=== PATIENT | male | born 1955 | race Hispanic/Latino ===

== ENCOUNTER 2021-09-09 16:46 | Inpatient (IN) | payer OTHER ==
--- OUTSIDE RECORDS SUMMARY | 2021-09-09 16:49 | XMS REPORT | Continuity of Care Document ---
:1955 Author Organization [facility] t Address [address] [place] [address] Care Team Providers Name Role Phone Timur SHEA, Wondiful A Primary Care Physician [phone] Neela Prajapati Attending Clinician Unavailable [id number] Attending Clinician Unavailable VAUGHN Attending Clinician Unavailable Moris GRAY Attending Clinician Unavailable ZECHARIAH Attending Clinician Unavailable Moris Hammond Attending Clinician MD ZECHARIAH R. Attending Clinician Unavailable Doctor Unassigned, Name Attending Clinician Unavailable Neela Prajapati Admitting Clinician Unavailable [id number] Admitting Clinician Unavailable ZECHARIAH Admitting Clinician Unavailable MD ZECHARIAH R. Admitting Clinician Unavailable Payers Payer Name Policy Type Policy Number Effective Date Expiration Date Rocío jo AET AET [id number] AETNA CHOICE POS II [id number] 2000 00:00:00 AET[employer] COMMERCIAL [id number] 2018 OUT OF NETWORK 00:00:00 Problems Condition Condition Condition Status Onset Resolution Last Treating Co mments Source Name Details Category Date Date Treatment Clinician Date Amputation Amputation Disease Active U T below knee below knee 9 He alth 00:00: 00 PAOD PAOD Disease Active [facility] (periphera (periphera 907 He alth l arterial l arterial 00:00: occlusive occlusive 00 disease) disease) PAD PAD Disease Active [place] (periphera (periphera 7-30 He alth l artery l artery 00:00: disease) disease) 00 S/P BKA S/P BKA Disease Active Univers (below (below 7-20 ity of knee knee 00:00: [place] amputation amputation 00 Me dical ), left ), left Branch Infection Infection Disease Active Uni vers 6-01 ity of 00:00: [place] 00 Medical Branch Other Other Disease Active Univers diseases diseases 2-09 ity of of nasal of nasal 00:00: [place] cavity and cavity and 00 Me dical sinuses sinuses Branch Mitral Mitral Disease Active Univers late late 2-09 ity of systolic systolic 00:00: [place] murmur murmur 00 Medical Branch Primary Primary Disease Active Univers hypertensi hypertensi 2-09 it y of on on 00:00: [place] 00 Medical Branch Occlusion Occlusion Disease Active Uni vers and and 2-09 ity of stenosis stenosis 00:00: [place] of carotid of carotid 00 Me dical artery artery Branch Hearing Hearing Disease Active Univers loss loss 2-09 ity of 00:00: [place] 00 Medical Branch Diabetic Diabetic Disease Active Unive rs peripheral peripheral 2-09 it y of neuropathy neuropathy 00:00: [place] 00 [place] Osteomyeli Osteomyeli Disease Active U nivers tis tis 2-01 ity of 00:00: [place] 00 Medical Branch Wound Wound Disease Active Overview: Univer s dehiscence dehiscence 2-01 Formattin ity of 00:00: g of this [place] 00 note Medical might be Branch different from the original. Added automatic ally from request for surgery [id number] S/P PICC S/P PICC Disease Active Unive rs central central 1-15 ity of line line 00:00: [place] placement placement 00 Medi megan Branch Osteomyeli Osteomyeli Disease Active Overview : Univers tis of tis of 1-11 Added ity of metatarsal metatarsal 00:00: automatic [place] 00 ally from Medical request Branch for surgery [id number] Left foot Left foot Disease Active Uni vers infection infection 1-11 ity of 00:00: [place] 00 Medical Branch Post-opera Post-opera Disease Active 2020-1 U nivers tive tive 2-19 ity of complicati complicati 00:[place] 00 Medical Branch S/P S/P Disease Active 2019-04 Univers ablation ablation 2-14 ity of of atrial of atrial 00:00: [place] fibrill[place] fibrillati 00 Me dical on on Branch Peripheral Peripheral Disease Active 2019-04 Overview : Univers vascular vascular 2-07 Formattin ity of disease, disease, 00:00: g of this [place] as unspecifie unspecifie 00 note Me dical d d might be Branch different from the original. Added automatic ally from request for surgery [id number] Ischemic Ischemic Disease Active 2019-04 Unive rs ulcer of ulcer of 0-30 ity of toe of toe of 00:00: [place] left foot left foot 00 [facility] Branch Ischemic Ischemic Disease Active 2019-04 Overview: Un adia ulcer of ulcer of 0-29 Added ity of toe of toe of 00:00: automatic [place] left foot left foot 00 ally from Barbara soto with with request Branch necrosis necrosis for of muscle of muscle surgery [id number] Toe Toe Disease Active 2019-04 Overview: Univer s osteomyeli osteomyeli 0-29 Added it y of tis, left tis, left 00:00: automatic [place] 00 ally from Medical request Branch for surgery [id number] Thrombus Thrombus Disease Active Unive rs 3-10 ity of 00:00: [place] 00 Medical Branch Status Status Disease Active Univers post left post left 3-09 ity of heart heart 00:00: [place] catheteriz catheteriz 00 Me dical ation ation Branch ([facility]) by ([facility]) by percutaneo percutaneo us us approach approach Acquired Acquired Disease Active 2018-04 Unive rs renal cyst renal cyst 1-12 it y of of right of right 00:00: [place] kidney kidney 00 Medical Branch Acquired Acquired Disease Active 2018-04 Unive rs renal cyst renal cyst 1-12 it y of of right of right 00:00: [place] kidney kidney 00 Medical Branch Renal Renal Disease Active 2018-04 Univers dysfunctio dysfunctio 0-31 it y of n n 00:00: [place] 00 Medical Branch Intestinal Intestinal Disease Active Overview : Univers metaplasia metaplasia 7-30 Formattin ity of of gastric of gastric 00:00: g of this [place] mucosa mucosa 00 note Medical might be Branch different from the original. Added automatic ally from request for surgery [id number] PAD PAD Disease Active 2017-04 Univers (periphera (periphera 0-30 it y of l artery l artery 00:00: [place] disease) disease) 00 Medica l Branch Proteinuri Proteinuri Disease Active U nivers a a 8-04 ity of 00:00: [place] 00 Medical Branch History of History of Disease Active Overview : Univers colon colon 5-03 Formattin ity of polyps polyps 00:00: g of this [place] 00 note Medical might be Branch different from the original. Added automatic ally from request for surgery [id number] Hepatomega Hepatomega Disease Active Overview : Univers ly ly 4-30 Formattin ity of 00:00: g of this [place] 00 note Medical might be Branch different from the original. Mild per US S/P CABG x S/P CABG x Disease Active U nivers 4 4 4-08 ity of 00:00: [place] 00 Medical Branch Anemia Anemia Disease Active Univers 4-03 ity of 00:00: [place] 00 Medical Branch Chest pain Chest pain Disease Active U nivers 3-04 ity of 00:00: [place] 00 Medical Branch Chronic Chronic Disease Active Univers diastolic diastolic 3-04 ity of congestive congestive 00:00[place] heart heart 00 Medical failure failure Branch PAF PAF Disease Active Univers (paroxysma (paroxysma 2-07 it y of l atrial l atrial 00:00: [place] fibrillati fibrillati 00 Me dical on) on) Branch TYLER TYLER Disease Active Univers (obstructi (obstructi 3-15 it y of ve sleep ve sleep 00:00: [place] apnea) apnea) 00 Medical Branch Coronary Coronary Disease Active 2014-04 Unive rs artery artery 2-08 ity of disease disease 00:00: [place] 00 Medical Branch 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 hyperlipid 2-08 it y of emia emia 00:00: [place] 00 Medical Branch Diabetes Diabetes Disease Active 2014-04 Unive rs mellitus mellitus 2-08 ity of 00:00: [place] 00 Medical Branch Dyspnea Dyspnea Disease Active 2014-04 Univers 2-08 ity of 00:00: [place] 00 Medical Branch 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 2-08 ity of artery artery 00:00: [place] disease disease 00 Medical Branch Obesity Obesity Disease Active 2014-04 Univers 05-22 ity of 00:00: [place] 00 [facility] Branch B12 B12 Disease Active Univers deficiency deficiency it y of [facility] Allergies, Adverse Reactions, Alerts Allergy Allergy Status Severity Reaction(s) Onset Inactive Treating Comm ents Source Name Type Date Date Clinician Freda Propensi Active [facility] ins ty to 12-19 Health adverse 00:00: reaction 00 s PENICILL DRUG Active Anaphylaxis 2014-04 Uni vers IN INGREDI 05-22 ity of 00:00: [place] 00 Medical Branch Penicill Propensi Active Anaphylaxis 2014-04 Patient Univers in ty to 05-22 reports ity of adverse 00:00: reaction [place] reaction 00 was bad. Medica l s Was given Branch Cefepime without adverse reaction Social History Social Habit Start Date Stop Date Quantity Comments Source Exposure to Not sure [facility] SARS-CoV-2 (event) [facility] History of tobacco Cigarette Smoker University of use [facility] Alcohol intake 2021-07-05 2021-07-05 0 /d University of 00:00:00 00:00:00 [facility] Tobacco Comment 2020-04-01 2020-04-01 quit 1996 Universit y of 00:00:00 00:00:00 [facility] Cigarettes smoked 2015-03-21 2015-03-21 Univers ity of current (pack per 00:00:00 00:00:00 ) - Reported Branch Cigarette 2015-03-21 2015-03-21 University of pack-years 00:00:00 00:00:00 [facility] Tobacco use and 2015-03-21 2015-03-21 Never used Universit y of exposure 00:00:00 00:00:00 [facility] [birth year] Universit y of 00:00:00 00:00:00 [facility] Smoking Status Start Date Stop Date Source Former smoker 2015-03-21 00:00:00 2015-03-21 00:00:00 Universi ty of [facility] Medications Ordered Filled Start Stop Current Ordering Indication Dosage Frequency Signature Comments Components Source Medication Medication Date Date Medication? Clinician (SIG) Name Name lisinopriL Yes 20mg Take 1 Unive rs (PRINIVIL) 1-18 tablet by ity of 20 mg 00:00: mouth [place] tablet 00 daily. Medical Please Branch note tablet dose change. spironolact Yes [id number] 12.5mg Take 0.5 Univers one 25 mg 1-04 tablets by ity of tablet 00:00: mouth [place] 00 daily. Medical Branch gabapentin 2020-04 Yes 300mg Take 300 Un adia 300 mg 1-08 mg by ity of capsule 13:35: mouth. [place] 36 Medical Branch rivaroxaban 2020-04 Yes 1 (one) Uni vers 20 mg 1-01 time each ity of tablet 00:00: day at the [place] 00 same time. Medical Branch clopidogrel Yes 1 (one) UT (Plavix) 75 9-07 time each Hea lth MG tablet 17:25: day at the 23 same time. rivaroxaban Yes 1 (one) [facility] (Xarelto) 907 time each Healt h 20 MG 17:25: day at the tablet 23 same time. clopidogrel Yes 1 (one) [place] (Plavix) 75 9-07 time each Hea lth MG tablet 17:25: day at the 23 same time. rivaroxaban Yes 1 (one) [facility] (Xarelto) 9-07 time each Healt h 20 MG 17:25: day at the tablet 23 same time. clopidogrel Yes 1 (one) [place] (Plavix) 75 9-07 time each Hea lth MG tablet 17:25: day at the 23 same time. rivaroxaban Yes 1 (one) [place] (Xarelto) 907 time each Healt h 20 MG 17:25: day at the tablet 23 same time. Insulin Yes [id number] Use as Univ ers [place], 7- directed ity of Disposable, 00:00: BId E11.65 [place] (PEN 00 Medical NEEDLE) 32 Branch gauge x 5/32" Ndle blood sugar Yes [id number] Use to Univers diagnostic - check ity of (ACCU-CHEK 00:00: blood [place] EL[place] PLUS 00 sugar 3X Medic al TEST STRP) daily. Branch strip DX:E11.42 lancets 33 Yes [id number] Use to U nivers gauge Misc 7-19 check ity of 00:00: blood [place] 00 sugar 3X Medical daily. Branch DX:E11.42 metoprolol Yes [id number] 50mg Take 1 Univers succinate 7-06 100 tablet by ity o f XL 50 mg 24 00:00: mouth 2 D[place] as hr tablet 00 (two) Medical times Branch daily. aspirin 81 0 Yes 81mg Take 1 Unive rs mg chewable 6-23 tablet by ity of tablet 00:00: mouth [place] 00 daily. Medical Branch aspirin Yes 1 (one) [facility] (ASPIRIN) 6-23 time each Healt h 81 MG 00:00: day at the chewable 00 same time. tablet aspirin 0 Yes 1 (one) UT (ASPIRIN) 6-23 time each Healt h 81 MG 00:00: day at the chewable 00 same time. tablet aspirin 0 Yes 1 (one) UT (ASPIRIN) 6-23 time each Healt h 81 MG 00:00: day at the chewable 00 same time. tablet mirtazapine Yes 15mg Take 1 Univ ers 15 mg 6-22 tablet by ity of tablet 00:00: mouth at [place] 00 bedtime. Medical Branch HYDROcodone Yes [id number] 1{tbl} Take 1 Un adia -acetaminop 6-22 tablet by ity of hen 10-325 00:00: mouth [place] mg tablet 00 every 6 Medical (six) Branch hours as needed for Pain (scale 4-6). Indication s: acute pain Insulin Yes [id number] INJECT 30 Univers Detemir 5-05 UNITS ity of (LEVEMIR 00:00: SUBCUTANEO [place] as FLEXTOUCH 00 USLY EVERY Medi megan U-100 MORNING Branch INSULN) 100 AND 15 unit/mL (3 UNITS mL) EVERY injection EVENING CLOPIDOGREL Yes Status post TAKE 1 Univers 75 mg 4-22 left heart TABLET BY ity of tablet 00:00: catheteriza MOUTH [place] as 00 tion (LHC) EVERY DAY Medi megan by Branch percutaneou s approach dulaglutide Yes Type 2 1.5mg inject 1.5 Univers (TRULICITY) 3-31 diabetes mg under ity of 1.5 mg/0.5 00:00: mellitus the skin [place] mL PnIj 00 with weekly. Medical peripheral Branch neuropathy metformin 0 Yes Type 2 1000mg Take 2 Un adia ER 500 mg 3-31 diabetes tablets by ity of 24 hr 00:00: mellitus mouth 2 [place] tablet 00 with (two) Medical peripheral times Branch neuropathy daily. dulaglutide Yes [id number] 1.5mg inject 1.5 Univers (TRULICITY) 3-31 mg under ity of 1.5 mg/0.5 00:00: the skin [place] as mL PnIj 00 weekly. Medical Branch metformin 2020-0 Yes [id number] 1000mg Take 2 Univers ER 500 mg 3-31 tablets by ity of 24 hr 00:00: mouth 2 [place] tablet 00 (two) Medical times Branch daily. atorvastati Yes 80mg Take 80 mg UT n (Lipitor) 3-15 by mouth Heal th 80 MG 00:00: every tablet 00 night. atorvastati Yes 80mg Take 80 mg UT n (Lipitor) 3-15 by mouth Heal th 80 MG 00:00: every tablet 00 night. atorvastati 2020-0 Yes 80mg Take 80 mg UT n (Lipitor) 3-15 by mouth Heal th 80 MG 00:00: every tablet 00 night. lisinopriL Yes 20mg Take 1 Unive rs (PRINIVIL) 2-23 tablet by ity of 20 mg 00:00: mouth [place] tablet 00 daily. Medical Please Branch note tablet dose change. pantoprazol 2020- No S/P PICC 40mg Take 1 Univers e 40 mg EC 05-23 central tablet by ity of tablet 00:00: 04:59 line mouth [place] 00 :00 placement daily for Medic al 180 days. Branch gabapentin 2020- No S/P PICC 300mg Take 1 Univers 300 mg 05-23 central capsule by ity of capsule 00:00: 04:59 line mouth [place] 00 :00 placement every Medical morning Branch and at 1200 (noon) for 180 days. acetaminoph 2021- No S/P PICC 650mg Take 2 Univers en 325 mg 05-22 central tablets by ity of tablet 00:00: 05:59 line mouth [place] 00 :00 placement every 6 Medical (six) Branch hours as needed for Pain (scale 1-3). furosemide No Chronic 40mg Take 1 U nivers 40 mg 05-22 heart tablet by ity of tablet 00:00: 04:59 failure mouth [place] 00 :00 with every Medical preserved morning Branch ejection and fraction evening for 180 days. Take one tablet by mouth in the morning and 1/2 (half) tablet by mouth in the evening. rivaroxaban 2020- No atrial 20mg Take 1 U nivers (XARELTO) 05-22 fibrillatio tablet by ity of 20 mg 00:00: 04:59 n mouth [place] tablet 00 :00 every Medical evening Branch for 180 days. Indication s: atrial fibrillati on gabapentin 2020- No S/P PICC 600mg Take 1 Univers 600 mg 05-22 central tablet by ity of tablet 00:00: 04:59 line mouth at [place] 00 :00 placement bedtime Medical for 180 Branch days. atorvastati 2019-04 Yes Essential 80mg Take 1 Univers n 80 mg 2-17 hypertensio tablet by ity of tablet 00:00: n mouth at [place] 00 bedtime. Medical Branch atorvastati 2019-04 Yes [id number] 80mg Take 1 Univers n 80 mg 2-17 tablet by ity of tablet 00:00: mouth at [place] 00 bedtime. Medical Branch magnesium 2019-04 Yes 400mg Take 400 Uni vers oxide 400 2-15 mg by ity of mg (241.3 00:00: mouth [place] mg 00 daily. Medical magnesium) Branch tablet magnesium 2019-04 Yes 400mg Take 400 Uni vers oxide 400 2-15 mg by ity of mg (241.3 00:00: mouth [place] mg 00 daily. Medical magnesium) Branch tablet metoprolol 2019-04 Yes Status post 50mg Take 1 Univers succinate 2-02 left heart tablet by ity of XL 50 mg 24 00:00: catheteriza mouth 2 [place] hr tablet 00 tion (LHC) (two) Med ical by times Branch percutaneou daily. s approach SPIRONOLACT 2019-04 Yes Essential TAKE 1/2 Univers ONE 25 mg 1-06 hypertensio TABLET BY ity of tablet 00:00: n MOUTH [place] 00 EVERY DAY Medical Branch Insulin 2020-0 Yes Type 2 Use as Univer s [place], 7-21 diabetes directed ity of Disposable, 00:00: mellitus BId E11.65 [place] (PEN 00 with Medical NEEDLE) 32 peripheral Bra nch gauge x neuropathy " Ndle ferrous 2019- Yes Anemia, 325mg Take 1 Univ ers sulfate 325 3-13 unspecified tablet by ity of mg (65 mg 00:00: type mouth 2 [place] iron) 00 (two) Medical tablet times Branch daily with meals. ferrous 2019- Yes [id number] 325mg Take 1 Un adia sulfate 325 3-13 tablet by ity of mg (65 mg 00:00: mouth 2 [place] iron) 00 (two) Medical tablet times Branch daily with meals. nitroglycer Yes .4mg Place 1 Uni vers in 0.4 mg 4-02 tablet ity of sublingual 00:00: under the [place] tablet 00 tongue Medical every 5 Branch (five) minutes as needed for Chest pain. nitroglycer Yes .4mg Place 1 Uni vers in 0.4 mg 4-02 tablet ity of sublingual 00:00: under the [place] tablet 00 tongue Medical every 5 Branch (five) minutes as needed for Chest pain. Immunizations Ordered Filled Immunization Date Status Comments [facility] e Immunization Name Name SARS-COV-2 COVID-19 2020-12-11 Completed Unive rsity of PFIZER VACCINE 00:00:00 [facility] SARS-COV-2 COVID-19 2020-06-05 Completed Unive rsity of PFIZER VACCINE 00:00:00 [facility] SARS-COV-2 COVID-19 2020-06-05 Completed Unive rsity of PFIZER VACCINE 00:00:00 [facility] SARS-COV-2 COVID-19 2020-05-09 Completed Unive rsity of PFIZER VACCINE 00:00:00 [facility] SARS-COV-2 COVID-19 2020-05-09 Completed Unive rsity of PFIZER VACCINE 00:00:00 [facility] SARS-COV-2 COVID-19 2020-05-08 Completed Unive rsity of PFIZER VACCINE 00:00:00 [facility] SARS-COV-2 COVID-19 2020-05-08 Completed Unive rsity of PFIZER VACCINE 00:00:00 [facility] TDAP 2019-11-22 Completed University of 00:00:00 [facility] Pneumococcal 2019-11-22 Completed University o f Polysaccharide, 00:00:00 [facility] ical PPSV23 (PNEUMOVAX) Branch TDAP 2019-11-22 Completed University of 00:00:00 [facility] Pneumococcal 2019-11-22 Completed University o f Polysaccharide, 00:00:00 [facility] ical PPSV23 (PNEUMOVAX) Branch Influenza Virus 2019-02-04 Completed Universit y of Vaccine Quad .5 mL 00:00:00 [facility] IM 6+ MO Branch Influenza Virus 2019-02-04 Completed Universit y of Vaccine Quad .5 mL 00:00:00 [facility] IM 6+ MO Branch Influenza Virus 2018-02-24 Completed Universit y of Vaccine [place] IM 3+ 00:00:00 [facility] Influenza Virus 2018-02-24 Completed Universit y of Vaccine Quad IM 3+ 00:00:00 [facility] TDAP 2017-02-27 Completed University of 00:00:00 [facility] TDAP 2017-02-27 Completed University of 00:00:00 [facility] Influenza Virus 2016-01-09 Completed Universit y of Vaccine 00:00:00 [facility] Influenza Virus 2016-01-09 Completed Universit y of Vaccine (3+ yrs) 00:00:00 [facility] Influenza Virus 2016-01-09 Completed Universit y of Vaccine 00:00:00 [facility] Influenza Virus 2016-01-09 Completed Universit y of Vaccine (3+ yrs) 00:00:00 [facility] Tetanus/Diptheria 2013-02-11 Completed Univers ity of 00:00:00 [facility] Tetanus/Diptheria 2013-02-11 Completed Univers ity of 00:00:00 [facility] Zoster(Zostavax)( 2012-10-01 Completed Unive rsity of ingles) 00:00:00 [facility] Pneumococcal 13 2012-10-01 Completed Universit y of Conjugate, PCV13 00:00:00 [facility] (Prevnar 13) [facility] Zoster(Zostavax)( 2012-10-01 Completed Unive rsity of ingles) 00:00:00 [facility] Pneumococcal 13 2012-10-01 Completed Universit y of Conjugate, PCV13 00:00:00 [place] Me dical (Prevnar 13) Branch Vital Signs Vital Name Observation Time Observation Value Comments Source Systolic blood 2021-08-20 16:40:00 144 mm[Hg] Univer sity of pressure [facility] Diastolic blood 2021-08-20 16:40:00 80 mm[Hg] Unive rsity of [facility] Heart rate 2021-08-20 16:33:00 65 /min [facility] Body temperature 2021-08-20 16:33:00 [facility].72 [facility] Body height 2021-08-20 16:33:00 170.2 cm [facility] Body weight 2021-08-20 16:33:00 94.031 kg [facility] BMI 2021-08-20 16:33:00 32.47 kg/m2 [facility] Oxygen saturation in 2021-08-20 16:33:00 100 /min [facility] Arterial blood by [facility] Pulse oximetry Branch Procedures Procedure Date / Time Performing Clinician Source Performed PHYSICIAN CORRESPONDENCE 2020-08-03 05:01:00 Doctor Unassigned, [facility] Medical Branch Plan of Care Planned Activity Planned Date Details Comments Source Future Scheduled 2029-11-21 DTaP,Tdap,and Td [facility] Test 00:00:00 Vaccines (3 - Td) Medical Br anch [code = DTaP,Tdap,and Td Vaccines (3 - Td)] Future Scheduled 2024-11-21 PNEUMOCOCCAL 0-64 [facility] Test 00:00:00 YEARS COMBINED SERIES Medica l Branch (3 of 3 - PPSV23) [code = PNEUMOCOCCAL 0-64 YEARS COMBINED SERIES (3 of 3 - PPSV23)] Future Scheduled 2021-05-21 [facility] (procedure) [code = Medical Branch [id number]] Future Scheduled 2021-05-19 Diabetic foot [facility] Test 00:00:00 examination Medical Branch (regime/therapy) [code = 332031748] Future Scheduled 2021-03-31 Depression screening Uni [facility] Test 00:00:00 (procedure) [code = Medical Branch [id number]] Future Scheduled 2020-12-13 INFLUENZA VACCINE [facility] Test 00:00:00 (Season Ended) [code = Medic al Branch INFLUENZA VACCINE (Season Ended)] Future Scheduled 2020-11-12 Hemoglobin A1c [facility] Test 00:00:00 measurement Medical Branch (procedure) [code = 45253947] Future Scheduled 2020-11-04 Screening for [facility] Test 00:00:00 malignant neoplasm of Medica l Branch colon (procedure) [code = 396199235] Future Scheduled 2020-11-04 Screening for [facility] Test 00:00:00 malignant neoplasm of Medica l Branch colon (procedure) [code = 958712879] Future Scheduled 2020-11-01 Cal[facility] 00:[facility]:00 lipoprotein Medical Branch cholesterol level (procedure) [code = 897809883] Future Scheduled 2020-11-01 Microalbumin [facility] Test 00:00:00 measurement, urine, Medical Branch quantitative (procedure) [code = 545362614] Future Scheduled 2020-08-31 Examination of retina Un [facility] Test 00:00:00 (procedure) [code = Medical Branch [id number]] Future Scheduled 2012-11-26 Z[facility] Test 00:00:00 Vaccine (SHINGRIX) (2 Medica l Branch of 3) [code = Zoster Recombinant Vaccine (SHINGRIX) (2 of 3)] Future Scheduled 2007 Screening for occult Uni [facility] Test 00:00:00 blood in feces Medical Bran h (procedure) [code = 211050422] Future Scheduled 2007 Stool DNA-based [facility] Test 00:00:00 colorectal cancer Medical Br anch screening (procedure) [code = 357780436048480] Future Scheduled 2007 Flexible fiberoptic Univ [facility] Test 00:00:00 sigmoidoscopy Medical Branch (procedure) [code = 36145777] Encounters Start End Encounter Admission Attending Care Care Encounter Source Date/Time Date/Time Type Type Clinicians Facility Department ID 2021-05-10 Outpatient 3 RUTHY Prajapati AML [id number] [facility] 12:22:33 Neela 0622 2021-05-10 Outpatient 3 [id number] [facility] REF [id number] [facility] 12:22:03 0621 2020-12-20 Outpatient VAUGHN [facility] [id number] [place] 02:58:24 [facility] 2021-09-03 2021-09-03 Outpatient R CHICHI, [facility] [id number] [facility] 11:30:00 11:30:00 JOHNNIE ity [facility] 2021-08-28 2021-08-28 Outpatient APPLE, [facility] [id number] 7[address] [place] 00:00:00 00:00:00 STEPHY [address] 2021-08-20 2021-08-20 Office VANGIE Gray [id number] [facility] 11:30:00 12:25:13 [facility] [id number] ity [facility] [id number] [facility] rocío [id number] [address] 2021-07-12 2021-07-13 Outpatient ZECHARIAH, [facility] [id number] 040 [place] 00:00:00 00:00:00 STEPHY [address] 2021-07-10 2021-07-10 Outpatient APPLE, [facility] [id number] 505 [place] 00:00:00 00:00:00 STEPHY [address] 2021-07-10 2021-07-10 Outpatient APPLE, [facility] [id number] 033 [place] 00:00:00 00:00:00 STEPHY [address] 2021-02-09 2021-02-09 Outpatient APPLE, [facility] [id number] 339 [place] 00:00:00 00:00:00 STEPHY [address] 2021-02-05 2021-02-05 Outpatient APPLE, [facility] [id number] 443 [place] 00:00:00 00:00:00 STEPHY [address] 2021-02-05 2021-02-05 Outpatient APPLE, [facility] [id number] 412 [place] 00:00:00 00:00:00 STEPHY [address] 2021-01-30 2021-01-30 Outpatient ZECHARIAH, [facility] [id number] 504 [place] 00:00:00 00:00:00 STEPHY [address] 2021-01-30 2021-01-30 Outpatient ZECHARIAH, [facility] [id number] 504 [place] 00:00:00 00:00:00 STEPHY [address] 2021-01-30 2021-01-30 Outpatient ZECHARIAH [facility] [id number] 505 [place] 00:00:00 00:00:00 STEPHY 015 [address] 2021-01-15 2021-01-15 Outpatient ZECHARIAH [facility] [id number] 767 [place] 00:00:00 00:00:00 STEPHY [address] 2021-01-09 2021-01-09 Outpatient ZECHARIAH [facility] [id number] 881 [place] 00:00:00 00:00:00 STEPHY [address] 2020-12-19 2020-12-19 Office VaughnTARYN [facility] [id number] 804 [place] 09:57:11 10:13:20 Visit Drake [facility] [id number] [place] 1 [id number] Results Test Description Test Time Test Comments Results Result Comments Source SARS-CoV-2 (COVID-19) RNA [Presence] in Respiratory sp ecimen by 2021-02-06 02:02:12 PERLA with probe detection Test Item Value Reference Range Interpretation Comme nts SARS-CoV-2 (COVID-19) RNA [Presence] in Respiratory Not detected No t-Detected specimen by PERLA with probe detection (test code = 04480-7) Whether patient is employed in a healthcare setting (test code = 82361-6) Whether the patient has symptoms related to condition of interest (test code = 60669-2) Patient was hospitalized because of this condition (test code = 07895-9) Whether the patient was admitted to intensive care unit (ICU) for condition of interest (test code = 85854-3) Whether patient resides in a congregate care setting (test code = 99104-4)
[2021-09-09 17:50] LABS: Hematocrit 25.3 % (39.6-49.0); Lymphocytes % 14.5 % (15.3-44.8); MPV 9.1 fL (7.6-11.3); RBC Red Blood Cell Count 2.75 M/uL (4.33-5.43)
[2021-09-09 18:09] LABS: Potassium 3.9 mmol/L (3.5-5.1); Troponin High Sensitivity 22.7 pg/mL (<58.9)
--- NOTE | 2021-09-09 18:50 | RAD REPORT ---
EXAM DESCRIPTION: RAD - Chest Single View - 09/09/2021 6:41 pm CLINICAL HISTORY: DYSPNEA Chest pain. COMPARISON: Chest Single View dated 01/03/2017; CHEST PA AND LAT 2 VIEW dated 06/15/2014 FINDINGS: Portable technique limits examination quality. The lungs are grossly clear. The heart is moderately enlarged with sternotomy wires present. No displ aced fractures.
--- NOTE | 2021-09-09 20:07 | EDPHYS ---
Physician Documentation [facility] Name: Sathya Douglass Age: 66 yrs Sex: Male : 1955 Arrival Date: 09/09/2021 Time: 16:50 Bed 8 Private MD: Gomez Lou C ED Physician Bal Masters HPI: 09/09 17:15 This 66 yrs old Male presents to ER via Wheelchair with complaints of cp Shortness Of Breath, General Weakness. 17:15 The patient has shortness of breath with light activity. Onset: The symptoms/episode cp began/occurred 6 day(s) ago. Duration: The symptoms are intermittent, with light activity. Associated signs and symptoms: Pertinent positives: chest pain, general weakness, Pertinent negatives: diaphoresis, dizziness, fever. Severity of symptoms: in the emergency department the symptoms are unchanged despite home interventions. Historical: - Allergies: 17:03 PENICILLINS; ld1 - PMHx: 17:03 Diabetes - NIDDM; High Cholesterol; Prostate; Hypertension; ld1 - Immunization history:: Adult Immunizations up to date, Client reports having NOT received the Covid vaccine. - Social history:: Smoking status: Patient denies any tobacco usage or history of. Patient/guardian denies using alcohol. ROS: 17:20 Constitutional: Negative for body aches, chills, fever, poor PO intake. cp 17:20 Eyes: Negative for injury, pain, redness, and discharge. cp 17:20 Cardiovascular: Positive for chest pain. cp 17:20 Neck: Negative for pain with movement, pain at rest, stiffness. cp 17:20 Respiratory: Positive for shortness of breath, on exertion. Negative for cough, wheezing. 17:20 Abdomen/GI: Negative for abdominal pain, vomiting, diarrhea, constipation. 17:20 Back: Negative for pain at rest, pain with movement. 17:20 : Negative for urinary symptoms. 17:20 Neuro: Positive for weakness, Negative for altered mental status, dizziness, headache, syncope. 17:20 All other systems are negative. Exam: 17:08 ECG was reviewed by the Attending Physician. cp 17:25 Constitutional: The patient appears in no acute distress, alert, awake, cp non-diaphoretic, non-toxic, well developed, well nourished. 17:25 Head/Face: Normocephalic, atraumatic. cp 17:25 Eyes: Periorbital structures: appear normal, Pupils: equal, round, and reactive to light and accomodation, Extraocular movements: intact throughout, Conjunctiva: normal, no exudate, no injection, Sclera: no appreciated abnormality, Lids and lashes: appear normal, bilaterally. 17:25 ENT: External ear(s): are unremarkable, Nose: is normal, Mouth: Lips: moist, Oral mucosa: pink and intact, moist, Posterior pharynx: Airway: no evidence of obstruction, patent. 17:25 Neck: ROM/movement: is normal, is supple, without pain, no range of motions limitations. 17:25 Chest/axilla: Inspection: normal, Palpation: is normal, no crepitus, no tenderness. 17:25 Cardiovascular: Rate: bradycardic, Rhythm: regular, Edema: is not appreciated, JVD: is not appreciated. 17:25 Respiratory: the patient does not display signs of respiratory distress, Respirations: normal, no use of accessory muscles, no retractions, labored breathing, is not present, Breath sounds: are clear throughout, no decreased breath sounds, no stridor, no wheezing. 17:25 Abdomen/GI: Inspection: abdomen appears normal, Palpation: abdomen is soft and non-tender, in all quadrants, Rectal exam: Stool: brown, guaiac negative. 17:25 Back: pain, is absent, ROM is normal. 17:25 Musculoskeletal/extremity: left lower extremity prosthesis. 17:25 Skin: cellulitis, is not appreciated, no rash present. 17:25 Neuro: Orientation: to person, place \\T\\ time. Mentation: is normal. Vital Signs: 17:00 BP 102 / 75; Pulse 70; Resp 17; Temp 98.1; Pulse Ox 97% on R/A; Weight 89.81 kg; Height ld1 5 ft. 7 in. (170.18 cm); Pain 6/10; 18:12 BP 136 / 55; Pulse 64; Resp 18 S; Pulse Ox 99% on R/A; jd3 19:01 BP 134 / 59; Pulse 54; Resp 20 S; Pulse Ox 95% on R/A; jd3 20:00 BP 136 / 66; Pulse 50; Resp 17; Pulse Ox 98% ; ld1 21:00 BP 131 / 53; Pulse 54; Resp 19; Pulse Ox 97% ; ld1 22:00 BP 111 / 61; Pulse 49; Resp 18; Pulse Ox 95% ; ld1 17:00 Body Mass Index 31.01 (89.81 kg, 170.18 cm) ld1 MDM: 17:01 Patient medically screened. cp 18:00 Differential diagnosis: CHF exacerbation, pneumonia, Pneumothorax pulmonary edema, cp Pulmonary Embolism Unstable Angina. 19:30 Data reviewed: vital signs, lab test result(s), EKG, radiologic studies, plain films. cp 19:30 Test interpretation: by ED physician or midlevel provider: ECG, plain radiologic cp studies. 20:00 Counseling: I had a detailed discussion with the patient and/or guardian regarding: the cp historical points, exam findings, and any diagnostic results supporting the discharge/admit diagnosis, lab results, radiology results, the need for further work-up and treatment in the hospital. 20:00 Physician consultation: A Carmine SHEA was called at 20:00, was contacted at 20:00, regarding admission, to the telemetry unit. patient's condition. 09/09 17:13 Order name: Basic Metabolic Panel; Complete Time: 19:23 [facility] 09/09 19:23 Interpretation: Normal except: GLUC 215; BUN 33; CRE 1.62; GFR 47. 09/09 17:13 Order name: CBC with Diff; Complete Time: 19:23 [facility] 09/09 19:23 Interpretation: Normal except: RBC 2.75; HGB 8.3; HCT 25.3; MARIAN% 78.3; LYM% 14.5; BASO% cp 1.4. 09/09 17:13 Order name: NT PRO-BNP; Complete Time: 19:23 [facility] 09/09 19:24 Interpretation: Abnormal: NT PRO-BNP 4687. 09/09 17:13 Order name: Troponin HS; Complete Time: 19:23 [facility] 09/09 19:25 Interpretation: Troponin HS 22.7; Reviewed. 09/09 20:22 Order name: Ferritin [facility] 09/09 20:22 Order name: Folic Acid, RBC [facility] 09/09 20:22 Order name: Iron [facility] 09/09 20:22 Order name: Transferrin Sat/Iron Binding [facility] 09/09 20:22 Order name: Vitamin B12 Level [facility] 09/09 20:22 Order name: Basic Metabolic Panel [facility] 09/09 20:22 Order name: Basic Metabolic Panel [facility] 09/09 20:22 Order name: CBC with Automated Diff [facility] 09/09 20:22 Order name: CBC with Automated Diff [facility] 09/09 21:03 Order name: COVID-19 SARS RT PCR (Document "Date of Onset" if Symptomatic) vc1 09/09 17:13 Order name: XRAY Chest (1 view); Complete Time: 19:23 [facility] 09/09 17:13 Order name: EKG; Complete Time: 17:14 [facility] 09/09 17:13 Order name: Cardiac monitoring; Complete Time: 17:28 [facility] 09/09 17:13 Order name: EKG - Nurse/Tech; Complete Time: 17:28 09/09 17:13 Order name: IV Saline Lock; Complete Time: 18:20 [facility] 09/09 17:13 Order name: Labs collected and sent; Complete Time: 17:44 [facility] 09/09 20:22 Order name: EKG Electrocardiogram [facility] 09/09 20:22 Order name: EKG Electrocardiogram [facility] 09/09 20:22 Order name: EKG Electrocardiogram [facility] 09/09 20:22 Order name: EKG Electrocardiogram [facility] 09/09 20:22 Order name: EKG Electrocardiogram [facility] 09/09 21:10 Order name: Troponin High Sensitivity [facility] 09/09 21:10 Order name: Troponin High Sensitivity [facility] 09/09 21:10 Order name: Troponin High Sensitivity [facility] 09/09 21:10 Order name: Troponin High Sensitivity [facility] 09/09 17:13 Order name: O2 Per Protocol; Complete Time: 17:28 [facility] 09/09 17:13 Order name: O2 Sat Monitoring; Complete Time: 17:28 EC:08 Rate is 59 beats/min. Rhythm is irregular. QRS interval is normal. QT interval is cp normal. T waves are Inverted in lead aVL. Interpreted by me. Reviewed by me. Administered Medications: 20:48 Drug: Lasix (furosemide) 20 mg Route: IVP; Site: left antecubital; vc1 Disposition Summary: 09/09/21 20:06 Hospitalization Ordered Hospitalization Status: Inpatient Admission cp Provider: Gomez Lou cp Location: Telemetry/[facility] (Inpatient) cp Condition: Stable cp Problem: new cp Symptoms: have improved cp Bed/Room Type: Standard cp Room Assignment: 232(09/09/21 22:34) cg Diagnosis - Angina pectoris, unspecified cp - Anemia in other chronic diseases classified elsewhere cp Forms: - Medication Reconciliation Form cp - SBAR form cp Addendum: 09/22/2021 07:08 Co-signature as Attending Physician, Bal Masters MD I agree with the assessment and k dr plan of care. Signatures: Dispatcher [employer] EDNH Bal Masters MD MD [facility] Zuhair Snyder PA PA cp Kylie Douglass, RN RN cg Edyta Brar RN RN jl7 Urvashi Carvajal RN RN ld1 Janna Meza RN RN vc1 Corrections: (The following items were deleted from the chart) 09/09 20:07 20:06 Iron deficiency anemia, unspecified cp cp 22:34 20:06 cp cg
--- NOTE | 2021-09-09 20:07 | ER ---
Nurse's Notes [facility] Name: Sathya Douglass Age: 66 yrs Sex: Male : 1955 Arrival Date: 09/09/2021 Time: 16:50 Bed 8 Private MD: Gomez Lou C Diagnosis: Angina pectoris, unspecified;Anemia in other chronic diseases classified elsewhere Presentation: 09/09 17:00 Chief complaint: Patient states: SOB and upper back pain since Friday. Gets "winded" ld1 when walking 3 steps. Coronavirus screen: At this time, the client does not indicate any symptoms associated with coronavirus-19. Ebola Screen: No symptoms or risks identified at this time. Initial Sepsis Screen: Does the patient meet any 2 criteria? No. Patient's initial sepsis screen is negative. Does the patient have a suspected source of infection? No. Patient's initial sepsis screen is negative. Risk Assessment: Do you want to hurt yourself or someone else? Patient reports no desire to harm self or others. Onset of symptoms was September 09, 2021. 17:00 Method Of Arrival: Wheelchair ld1 17:00 Acuity: FRANCIS 3 ld1 Triage Assessment: 17:03 General: Appears in no apparent distress. comfortable, Behavior is calm, cooperative, ld1 appropriate for age. Pain: Complains of pain in back Pain does not radiate. EENT: No signs and/or symptoms were reported regarding the EENT system. Neuro: Level of Consciousness is awake, alert, obeys commands, Oriented to person, place, time, situation. Cardiovascular: Capillary refill < 3 seconds Patient's skin is warm and dry. Respiratory: Airway is patent Respiratory effort is even, unlabored. Respiratory: Onset: The symptoms/episode began/occurred suddenly, the patient has mild shortness of breath. GI: Abdomen is flat, non-distended. 17:03 Respiratory: Onset: The symptoms/episode began/occurred gradually, the patient has mild jd3 shortness of breath. Historical: - Allergies: 17:03 PENICILLINS; ld1 - PMHx: 17:03 Diabetes - NIDDM; High Cholesterol; Prostate; Hypertension; ld1 - Immunization history:: Adult Immunizations up to date, Client reports having NOT received the Covid vaccine. - Social history:: Smoking status: Patient denies any tobacco usage or history of. Patient/guardian denies using alcohol. Screenin:03 Abuse screen: Denies threats or abuse. Nutritional screening: No deficits noted. jd3 Tuberculosis screening: No symptoms or risk factors identified. Fall Risk Ambulatory Aid- None/Bed Rest/Nurse Assist (0 pts). Gait- Normal/Bed Rest/Wheelchair (0 pts) Mental Status- Oriented to own ability (0 pts). Total Amaral Fall Scale indicates No Risk (0-24 pts). Assessment: 17:00 General: Appears in no apparent distress. comfortable, Behavior is calm, cooperative, jd3 appropriate for age. Pain: Complains of pain in mid back area Quality of pain is described as aching. Neuro: Reynolds Agitation-Sedation Scale (RASS): 0 - Alert and Calm Level of Consciousness is awake, alert, obeys commands, Oriented to person, place, time, situation. Cardiovascular: Heart tones present Capillary refill < 3 seconds Patient's skin is warm and dry. Rhythm is sinus bradycardia. Respiratory: Reports shortness of breath on exertion Airway is patent Respiratory effort is even, unlabored, Respiratory pattern is regular, symmetrical, Breath sounds are clear bilaterally. Denies cough. GI: No signs and/or symptoms were reported involving the gastrointestinal system. : No signs and/or symptoms were reported regarding the genitourinary system. EENT: No signs and/or symptoms were reported regarding the EENT system. Derm: Skin is intact, Skin is dry, Skin is normal, Skin temperature is warm. Musculoskeletal: Circulation, motion, and sensation intact. Range of motion: intact in all extremities. 18:12 Reassessment: Patient appears in no apparent distress at this time. No changes from jd3 previously documented assessment. Patient and/or family updated on plan of care and expected duration. Pain level reassessed. Patient is alert, oriented x 3, equal unlabored respirations, skin warm/dry/pink. 19:01 Reassessment: Patient appears in no apparent distress at this time. Patient and/or jd3 family updated on plan of care and expected duration. Pain level reassessed. Patient is alert, oriented x 3, equal unlabored respirations, skin warm/dry/pink. 20:00 Reassessment: Patient and/or family updated on plan of care and expected duration. Pain ld1 level reassessed. Patient is alert, oriented x 3, equal unlabored respirations, skin warm/dry/pink. 21:00 Reassessment: Patient and/or family updated on plan of care and expected duration. Pain ld1 level reassessed. Patient is alert, oriented x 3, equal unlabored respirations, skin warm/dry/pink. 22:00 Reassessment: Patient and/or family updated on plan of care and expected duration. Pain ld1 level reassessed. Patient is alert, oriented x 3, equal unlabored respirations, skin warm/dry/pink. Vital Signs: 17:00 BP 102 / 75; Pulse 70; Resp 17; Temp 98.1; Pulse Ox 97% on R/A; Weight 89.81 kg; Height ld1 5 ft. 7 in. (170.18 cm); Pain 6/10; 18:12 BP 136 / 55; Pulse 64; Resp 18 S; Pulse Ox 99% on R/A; jd3 19:01 BP 134 / 59; Pulse 54; Resp 20 S; Pulse Ox 95% on R/A; jd3 20:00 BP 136 / 66; Pulse 50; Resp 17; Pulse Ox 98% ; ld1 21:00 BP 131 / 53; Pulse 54; Resp 19; Pulse Ox 97% ; ld1 22:00 BP 111 / 61; Pulse 49; Resp 18; Pulse Ox 95% ; ld1 17:00 Body Mass Index 31.01 (89.81 kg, 170.18 cm) ld1 ED Course: 16:50 Patient arrived in ED. am2 16:50 Gomez Lou MD is Private Physician. am2 16:53 Giacomo uLi RN is Primary Nurse. jd3 16:53 Zuhair Snyder PA is PHCP. cp 16:53 Bal Masters MD is Attending Physician. cp 17:03 Triage completed. ld1 17:03 Arm band placed on right wrist. ld1 17:05 Patient has correct armband on for positive identification. Bed in low position. Call jd3 light in reach. Side rails up X 1. Adult w/ patient. Client placed on continuous cardiac and pulse oximetry monitoring. NIBP monitoring applied. bus monitor on. Pulse ox on. NIBP on. 17:11 EKG done, by ED staff, reviewed by Zuhair LUIS. jl7 17:44 Missed attempt(s): 22 gauge in right forearm. Bleeding controlled, band aid applied, jd3 catheter tip intact. Missed attempt(s): 20 gauge in right antecubital area. Bleeding controlled, band aid applied, catheter tip intact. 17:44 Initial lab(s) drawn, by me, sent to lab. jd3 18:08 Missed attempt(s): 22 gauge in left antecubital area. Bleeding controlled, band aid jl7 applied, catheter tip intact. 18:42 XRAY Chest (1 view) In Process Unspecified. EDMS 19:21 Primary Nurse role handed off by Giacomo Lui RN eb 20:06 Gomez Lou MD is Hospitalizing Provider. cp 20:18 Tanna Lagos, TERRIE is Primary Nurse. lg3 21:10 COVID-19 SARS RT PCR (Document "Date of Onset" if Symptomatic) Sent. vc1 23:26 No provider procedures requiring assistance completed. Patient admitted, IV remains in bb place. Administered Medications: 20:48 Drug: Lasix (furosemide) 20 mg Route: IVP; Site: left antecubital; vc1 Medication: 17:03 VIS not applicable for this client. jd3 Outcome: 20:06 Decision to Hospitalize by Provider. cp 23:26 Admitted to Tele accompanied by tech, room 232, with chart, Report called to Chioma FALCON bb 23:26 Condition: stable 23:26 Instructed on 23:51 Patient left the ED. lp1 Signatures: Dispatcher [employer] EDMS Lili Fernandes RN RN bb Oxana Moya RN RN lp1 Zuhair Snyder PA PA cp Edyta Brar RN RN jl7 Blanka Mancia amGiacomo De La Fuente, RN RN jAminah Caballero Lacie, RN RN lg3 Urvashi Carvajal RN RN ld1 Janna Meza RN RN vc1
[2021-09-09] MEDS ORDERED: ONDANSETRON 4 MG/2 ML VIAL IV PRN (20:15)
[2021-09-09] MEDS ORDERED: FUROSEMIDE 20 MG/ 2ML VIAL ONE (20:30)
[2021-09-09 23:55] VITALS: BMI 31.0
[2021-09-10 06:16] LABS: Absolute Lymphocytes (CBC) 1.1 K/uL (0.7-4.9); MPV 8.6 fL (7.6-11.3); RBC Red Blood Cell Count 2.43 M/uL (4.33-5.43)
[2021-09-10 06:54] LABS: Ferritin 179.2 ng/mL (26-388); Potassium 3.8 mmol/L (3.5-5.1)
[2021-09-10] MEDS ORDERED: ASPIRIN EC 81 MG TAB PO SCH (09:00)
[2021-09-10] MEDS ORDERED: GLUCAGON 1 MG/VIAL IM PRN (09:54)
[2021-09-10] MEDS ORDERED: D10W 250 ML BAG IV PRN (10:24)
[2021-09-10] MEDS ORDERED: PANTOPRAZOLE 40MG TABLET PO ONE (11:00)
[2021-09-10] MEDS: INSULIN -REGULAR HUMAN 50 UNIT/0.5 ML ML SQ SCH ×3 (11:30→20:41)
--- NOTE | 2021-09-10 11:32 | HP ---
JILLIAN/DWAYNE Voice ID: [id number] MTDD
[2021-09-10] MEDS ORDERED: NA CHLORIDE 0.9% 250 ML ONE ×2 (14:57→19:49)
--- NOTE | 2021-09-10 19:53 | CON ---
Date of Consultation: 09/10/2021 Reason For Consultation: Chest pain and shortness of breath. History Of Present Illness: 66-year-old male with history of coronary artery disease, status post re cent stent placement support, claimed that he felt better for some time and then started h aving chest pain again along with shortness of breath on minimal exertion. Generally, he feels very weak. Has no nausea, vomiting, or diaphoresis. Past Medical History: Coronary artery disease, diabetes, dyslipidemia, hypertension, large prostate. Medications: Refer to reconciliation sheet for detailed list. Allergies: PENICILLIN. Family History: No premature coronary artery disease or cancer. Social History: Does not smoke or drink. Does not use any drugs. Review of Systems: All systems reviewed, were negative except mentioned in HPI. Physical Examination: Vital Signs: Reviewed. Head and Neck: Pupils are equal, reactive to light. Intact eye movements. No cervical lymphadenopa thy. Neck: Supple. Thyroid is not enlarged. Lungs: Faint crackles on bases. No accessory muscle use or muscle retraction. Heart: Irregularly irregular with aortic systolic ejection murmur. Abdomen: Soft, nontender. Bowel sounds positive. No organomegaly. No masses or hernia. No rigidi ty or rebound. Extremities: No clubbing, cyanosis. Intact pulses. Skin: No rashes. Neurologic: Alert, awake, oriented x3. No acute focal deficits appreciated. Investigations: BUN 37, creatinine 1.57, and his troponin I is negative. Hemoglobin 7.5. EKG witho ut acute specific abnormalities. Assessment And Recommendation: Chest pain. Known history of coronary artery disease. Has aortic sy stolic ejection murmur on exam. Recommend to obtain echocardiogram and to evaluate aortic valve and also a nuclear stress test. Discussed with the patient, he wants to do the above recommended follow up with his primary vascular specialists and as such I will sign off on the case and thank you for allowing sommer narvaez to be a part of your patient's care. /DWAYNE Voice ID: [id number] Report ID: [id number]
[2021-09-10] MEDS: GABAPENTIN 300 MG CAP PO SCH (20:43)
[2021-09-10] MEDS ORDERED: ATORVASTATIN 40 MG TAB PO SCH (21:00)
[2021-09-11 01:16] LABS: Hematocrit 31.6 % (39.6-49.0)
[2021-09-11] MEDS: INSULIN -REGULAR HUMAN 50 UNIT/0.5 ML ML SQ SCH (07:30)
[2021-09-11] MEDS ORDERED: PANTOPRAZOLE 40MG TABLET PO SCH (07:30)
[2021-09-11 08:06] VITALS: BP 155/68; TEMP 97.3
[2021-09-11] MEDS: GABAPENTIN 300 MG CAP PO SCH (08:11)
[2021-09-11 11:07] VITALS: O2SAT 98
--- NOTE | 2021-09-11 12:21 | EKG ---
Test Date: 2021-09-09 Test Time: 17:02:21 Brassiere Cup Mold Cutter: [place]ORD MEASUREMENT RESULTS: Intervals: Rate: 59 NM: QRSD: 84 QT: 446 QTc: 441 [place]: P: NM: QRS: 48 T: 249 INTERPRETIVE STATEMENTS: Atrial flutter with variable AV block ST & T wave abnormality, consider anterior ischemia Abnormal ECG Compared to ECG 01/06/2017 16:55:32 Possible ischemia now present Sinus rhythm no longer present ST (T wave) deviation still present Electronically Signed On 09-11-21 12:16:58 CDT by Abdon Arciniega
--- NOTE | 2021-09-11 12:42 | HP ---
Date of Admission: 09/10/2021 Chief Complaint: Feeling weak and tired, chest pain, and shortness of breath. History Of Present Illness: This is a 66-year-old very pleasant male patient, who has multiple comorbidities, came into our emergency room with 3-4 days history of feeling very weak, tired with any activity. For example, taking 3-4 steps after that he would have some shortness of breath and chest pain. He describes his chest pain as pressure type of feeling associated with some back pain. All the symptoms get relieved with rest and when he does try to walk again next time, he would have same complaints. No blood in stool. No change in bowel habits. No nausea, vomiting. No abdominal pain. No acid reflux. No trouble swallowing. He came into emergency room yesterday evening with these complaints. After he was evaluated, he was admitted to the hospital. This morning when I saw him, his brother and were present at bedside. Allergies: TO PENICILLIN. Medications: Metoprolol succinate 50 mg p.o. daily; atorvastatin 40 mg daily at bedtime; clopidogrel 75 mg p.o. daily; Xarelto 20 mg p.o. daily with evening meal; Trulicity 3 mg per 0.5 mL, the patient injects 0.5 mL subcutaneous injection 1 week; ferrous sulfate 325 mg 2 times a day; Levemir insulin 30 units in the morning and 15 units at bedtime; lisinopril 20 mg daily; metformin 500 mg takes 2 tablets 2 times a day; mirtazapine 15 mg p.o. daily at bedtime; pantoprazole 40 mg daily 30 minutes before breakfast. Review of Systems: Constitutional: As mentioned above. Cardiovascular: As mentioned above. Respiratory: As mentioned above. Neurology: The patient has chronic problem with tingling, numbness of the right foot. All other systems reviewed and negative. Past Medical History: Significant for history of TIA in May 2020, peripheral neuropathy due to diabetes, diabetic retinopathy, type 2 diabetes mellitus, hypertension, hyperlipidemia, coronary artery disease, history of myocardial infarction in 1995, atrial fibrillation, carotid artery stenosis, chronic anemia and his baseline hemoglobin is anywhere between 10.8 to 11.4. Last hemoglobin on August 01, 2021 was 10.8. Past medical history also significant for thrombocytopenia. Past Surgical History: Coronary artery stent placement in April 2021 and July 13, 2021. Coronary artery bypass surgery in 2004, ablation for atrial fibrillation in May 2020, carotid artery stent in 2004, left leg angioplasty and stent in the past, and the patient had left leg below-knee amputation September 2020 and right knee surgery in the past. Family History: Father , had diabetes and kidney disease. Mother , had diabetes, heart disease, and stroke. Brother is alive and well. Sister has diabetes. Social History: Prior history of smoking, not at present time. Use of alcohol negative. Immunization History: The patient had his COVID-19 vaccine; first dose May 09, 2020, second dose June 05, 2020, third dose December 11, 2020. Physical Examination: Vital Signs: Height 5 feet 7 inches, weight 198 pounds. Temperature 97.1, pulse 51, respiratory rate 16, blood pressure 123/67, oxygen saturation 98%. General: Awake, alert, oriented, not in distress. HEENT: Head atraumatic, normocephalic. Conjunctivae nonerythematous. Sclerae white. Mouth, no thrush or edema noted. Ears/Nose, no mass, lesion, discharge noted. Neck: Supple. No JVD, lymph nodes, bruit, thyromegaly noted. Lungs: Bilateral good equal air entry. Clear to auscultation. No rhonchi. No rales. Heart: The patient's rhythm is irregularly irregular. No murmur. No gallop. Abdomen: Soft, bowel sounds normal. No guarding, rigidity, tenderness, mass, hepatosplenomegaly, distention, or bruit noted. Extremities: Significant for left below-knee amputation and no evidence of any open wound or any area of any infection. Well-healed stump. Skin: No rash, ulcer, cellulitis. Lymphatics: No lymph node enlargement in neck, supraclavicular, infraclavicular region. Neuro: No focal neurological deficit. Chest: Unremarkable. External Genitalia: Deferred. Rectal: Deferred. Laboratory Data: Yesterday; white count was 6.7, hemoglobin 8.3, platelets 192. This morning; white count 6.8, hemoglobin 7.5, platelets 186. Yesterday; sodium 138, potassium 3.9, chloride 105, bicarb 24, BUN 33, creatinine 1.62, glucose 215. Troponin 22.7. ProBNP 4687. Second troponin 23.3, third troponin 20.8. This morning; sodium 139, potassium 3.8, chloride 109, bicarb 24, BUN 37, creatinine 1.56, glucose 122, vitamin B12 282, ferritin 179. Serum iron 35, TIBC 211. Folic acid level pending. Chest x-ray shows cardiomegaly, otherwise no acute changes. Impression: 1. Acute blood loss anemia. 2. Coronary artery disease. 3. Chronic atrial fibrillation. 4. Volume depletion. 5. Chronic anticoagulation therapy. 6. Type 2 diabetes mellitus with diabetic retinopathy. 7. Type 2 diabetes mellitus with diabetic neuropathy. 8. Hypertension. 9. Hyperlipidemia. 10. Carotid artery stenosis. 11. Peripheral vascular disease. Plan: We will go ahead and admit the patient to hospital for further evaluation and management of this problem. The patient is appropriate for inpatient and is expected to spend 2 midnights in hospital. The patient's stool guaiac was negative, done in the emergency room yesterday. At this point, I am definitely concerned about acute blood loss anemia as his hemoglobin was 10.8 just about 5 weeks ago and it is much lower now with this hospital admission as we have noted. He does not have any obvious signs, symptoms of any GI blood loss, but that is definitely over concern. His creatinine on outpatient basis was around 1.1 to 1.2 range and BUN and creatinine slightly have gone up. There is a good possibility that we might be dealing with upper GI bleeding. We do not have any armored truck driver available for any consultation and the patient sees Dr. Ghosh on an outpatient basis and I have encouraged him that he should follow up with him within next couple of weeks or so for further evaluation and management of this anemia problem as he will need to have an EGD as well as colonoscopy done and if that does not explain, then he may need to have a capsule endoscopy done for complete workup looking for any underlying cause of blood loss. I have also encouraged him to follow up with his shank carrier, Dr. Brown and I will try to reach out to him to communicate with him regarding the patient's current hospital presentation and we will discuss details with him at that time. We will not give any anti-platelet therapy or any anticoagulant medication at this time. I have ordered 2 units of packed red cell blood transfusion to be given and we will follow up on post transfusion hemoglobin and continue high-dose statin therapy and proton pump inhibitor per order. Continue gabapentin for diabetic neuropathy and diabetes will be managed with sliding scale insulin. The patient remains on telemetry and he has atrial fibrillation. His heart rate has dropped down into 40 to 50 range and he takes metoprolol 50 mg daily at home. I will hold on to it and I will consider to restart it and if necessary may be at a lower dose at appropriate time. Other home medications will be restarted at appropriate time. Details and plan of treatment were discussed with the patient in presence of his brother and the patient's . I will see him tomorrow for followup. This patient may benefit from Watchman procedure and obviously the final decisions will be made by his shank carrier. I have ordered stool guaiac to be done on a daily basis. JILLIAN/DWAYNE Voice ID: [id number] MTDD
--- NOTE | 2021-09-11 13:22 | PN ---
Date of Progress Note: 09/11/2021 The patient had been admitted by 09/09/2021. He was seen by Dr. Ge on 09/10/2021. The patient is not having anymore chest pain. He had came in with anemia, angina, shortness of breat h, and weakness. He has had 2 units of blood transfusion. He is asymptomatic right now. He has a c reatinine of 1.56. He has chronic atrial fibrillation, rate of 50, which is chronic. He takes Xarel to for that. He takes Effient with history of coronary artery disease, status post CABG in the past. He also has diabetes, hypertension, and dyslipidemia that are fairly well controlled. His last ech ocardiogram in 2017 showed [id number] decrease in ejection fraction of 35% to 49%. I agree wit h his present regimen. He has already had a negative GI workup. No further cardiac workup at this p oint. He will follow up with Dr. Brown in the next couple of weeks. He can go home as far as I am co ncerned. Case was discussed with Dr. Lou. KRYS/DWAYNE Voice ID: [id number] Report ID: [id number]
--- NOTE | 2021-10-09 10:02 | DS ---
Date of Discharge: 09/11/2021 Disposition: Discharged to go home. Physical Examination: HEENT: Unremarkable. Lungs: Clear to auscultation. Heart: Sounds . No guarding, rigidity, tenderness, distention. Extremities: No leg edema. Discharge Medications And Instructions: Continue all prior home medication except following changes. 1.Stop prasugrel. 2.Stop Xarelto. 3.Lower metoprolol succinate dose and take 50 mg. The patient to take half a tablet by mouth daily. 4.Start aspirin 81 mg, take 1 tablet by mouth daily with food. 5.Follow up with Dr. Brown, heeler as soon as possible this week. Dr. Brown's office will conta ct you with appointment as I have discussed details with him yesterday. 6.Follow up at my office next week on Friday, which is 09/17/2021. Call office for appointment. 7.Follow up with Dr. Ghosh in 2 weeks. Laboratory Data: On 09/09/2021; white count 6.7, hemoglobin 8.3, platelets 192. On 09/10/2021, hemo globin was 7.5. After blood transfusion, his last hemoglobin came up to 10.6. Chemistry; his initia l sodium 138, potassium 3.9, chloride 105, bicarb 24, BUN 33, creatinine 1.62, glucose 215. Troponin was 22.7 on the first set, 23.3 for the second set, and 20.8 for the third set. Vitamin B12 level 2 82, folic acid level 871. Ferritin was 179. Serum iron was 35. TIBC was 211. Hospital Course: This is a 66-year-old pleasant male patient, who was admitted to the hospital with chief complaints of feeling weak, tired, chest pain and shortness of breath. Please see dictated H a nd P for more information. After the patient was evaluated in the ER, he was admitted to the [facility] with this acute blood loss anemia problem. The patient received blood transfusion. He does see ca rdiologist, Dr. Brown on regular basis and I did communicate with Dr. Brown regarding this hospital adm ission with acute blood loss anemia and he recommended for the patient to stop his anti-platelet ther apy which is prasugrel and anticoagulant therapy which is Xarelto. The patient will need GI workup a s well as cardiac workup, so he was made aware about my discussion with his heeler that he will need to follow up with his heeler as soon as possible per recommendation and also follow up wi th his meter tester polyphase. After blood transfusion, the patient was discharged to go home in stable condition with above-mentioned medications and instructions. Final Diagnoses: 1.Acute blood loss anemia. 2.Coronary artery disease. 3.Chronic atrial fibrillation. 4.Volume depletion. 5.Chronic anticoagulation therapy. 6.Type 2 diabetes mellitus with neuropathy. 7.Type 2 diabetes mellitus with retinopathy. 8.Hypertension. 9.Hyperlipidemia. 10.Carotid artery stenosis. 11.Peripheral vascular disease. JILLIAN/MODL Voice ID: [id number] Report ID: [id number]
== END 2021-09-11 09:15 | disposition home or self-care (01) | DRG 812 ==
LOC: ER 16:46 → ERHOLD 20:16 → 2ND 23:18
PROVIDERS: ADMIT Internal Medicine; ATTEND Internal Medicine
PROC: 30233N1 Transfusion of Nonautologous Red Blood Cells into Peripheral Vein, Percutaneous Approach (ICD-10-PCS; 2021-09-10)
PROC: 30233N1 Transfusion of Nonautologous Red Blood Cells into Peripheral Vein, Percutaneous Approach (ICD-10-PCS; principal; 2021-09-11)
DX: D62 Acute posthemorrhagic anemia (principal); I48.19 Other persistent atrial fibrillation; E11.42 Type 2 diabetes mellitus with diabetic polyneuropathy; E11.319 Type 2 diabetes mellitus with unspecified diabetic retinopathy without macular edema; I10 Essential (primary) hypertension; E78.5 Hyperlipidemia, unspecified; D69.6 Thrombocytopenia, unspecified; E86.9 Volume depletion, unspecified; I65.29 Occlusion and stenosis of unspecified carotid artery; I73.9 Peripheral vascular disease, unspecified; I25.119 Atherosclerotic heart disease of native coronary artery with unspecified angina pectoris; I25.2 Old myocardial infarction; Z79.01 Long term (current) use of anticoagulants; Z20.822 Contact with and (suspected) exposure to COVID-19; Z95.1 Presence of aortocoronary bypass graft; Z86.73 Personal history of transient ischemic attack (TIA), and cerebral infarction without residual deficits
CPT/HCPCS: 36415; 71045; 80048; 82274; 82607; 82728; 82747; 82947; 83540; 83880; 84466; 84484; 85014; 85018; 85025; 86850; 86900; 86901; 93005; 96374; 99285; J1815; J1940; J7050; P9016; U0003

== ENCOUNTER 2021-11-19 14:00 | Emergency (ER) | payer OTHER ==
--- OUTSIDE RECORDS SUMMARY | 2021-11-19 14:05 | XMS REPORT | Continuity of Care Document ---
:1955 Author Organization [facility] t Address [address] [place] [address] Care Team Providers Name Role Phone Timur SHEA, Darlene A Primary Care Physician [phone] Neela Prajapati Kelcey Attending Clinician Unavailable [id number] Attending Clinician Unavailable DRAKE GOVEA Attending Clinician Unavailable STEPHY APPLE Attending Clinician Unavailable EDUARDO CADET Attending Clinician Unavailable Eduardo Hammond Attending Clinician MD STEPHY APPLE Attending Clinician Unavailable Doctor Unassigned, [place] Attending Clinician Unavailable Neela Prajapati Kelcey Admitting Clinician Unavailable [id number] Admitting Clinician Unavailable STEPHY APPLE Admitting Clinician Unavailable MD STEPHY APPLE Admitting Clinician Unavailable Payers Payer Name Policy Type Policy Number Effective Date Expiration Date [place] jo AET AET [id number] AETNA CHOICE POS II [id number] 2000 00:00:00 [employer] COMMERCIAL [id number] 2018 OUT OF NETWORK 00:00:00 Problems Condition Condition Condition Status Onset Resolution Last Treating Co mments Source Name Details Category Date Date Treatment Clinician Date Amputation Amputation Disease Active U T below knee below knee 12-19 He alth 00:00: 00 PAOD PAOD Disease Active [place] (periphera (periphera 9-07 He alth l arterial l arterial 00:00: [...] Added automatic ally from request for surgery [id number] S/P PICC S/P PICC Disease Active Unive rs central central 1-15 ity of line line 00:00: [place] placement placement 00 Medi megan Branch Osteomyeli Osteomyeli Disease Active Overview : Univers tis of tis of 1-11 Added ity of metatarsal metatarsal 00:00: automatic [place] 00 ally from Medical request Branch for surgery [id number] Left foot Left foot Disease Active 2021-0 Uni vers infection infection 1-11 ity of 00:00: [place] 00 Medical Branch Post-opera Post-opera Disease Active 2019-04 U nivers tive tive 2-19 ity of complicati complicati 00:[place] Medical Branch S/P S/P Disease Active 2019-04 Univers ablation ablation 2-14 ity of of atrial of atrial 00:00[place] fibrill[place] fibrillati 00 Me dical on on Branch Peripheral Peripheral Disease Active 2019-04 Overview : Univers vascular vascular 2-07 Formattin ity of disease, disease, 00:00: g of this Dimitri as unspecifie unspecifie 00 note Me dical d d might be Branch different from the original. 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 [id number] Toe Toe Disease Active 2019-04 Overview: Univer s osteomyeli osteomyeli 0-29 Added it y of tis, left tis, left 00:00: automatic [place] 00 ally from Medical request Branch for surgery [id number] Thrombus Thrombus Disease Active Unive rs 3-10 ity of 00:00: [place] 00 Medical Branch Status Status Disease Active Univers post left post left 3-09 ity of heart heart 00:00: [place] catheteriz catheteriz 00 Me dical ation at[facility] ([facility]) by ([facility]) by frida galicia us us approach approach Acquired Acquired Disease [...] gastric of gastric 00:00: g of this [place] mucosa mucosa 00 note Medical might be Branch different from the original. Added automatic ally from request for surgery [id number] PAD PAD Disease Active 2017-04 Univers (periphera [...] Added automatic ally from request for surgery [id number] Hepatomega Hepatomega Disease Active Overview : Univers [...] y of ve sleep ve sleep 00:00: [place] apnea) apnea) 00 Medical Branch Coronary Coronary [...] Branch Dyspnea Dyspnea Disease Active 2014-04 Univers 05-22 ity of 00:00: [place] 00 Medical Branch 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 05-22 ity of artery artery 00:00: [place] disease disease 00 Medical Branch Obesity Obesity Disease Active 2014-04 Univers 08 ity of 00:00: [place] 00 Medical Branch B12 B12 Disease Active Univers deficiency deficiency it y of [facility] Allergies, Adverse Reactions, Alerts Allergy Allergy Status [...] Quantity Comments Source Exposure to Not sure [facility] SARS-CoV-2 (event) [facility] History of tobacco Cigarette Smoker University of use [facility] Alcohol intake 2021-07-05 2021-07-05 0 /d University of 00:00:00 00:00:00 [facility] Tobacco Comment 2020-04-01 2020-04-01 quit 1996 Universit y of 00:00:00 00:00:00 [facility] Cigarettes smoked 2015-03-21 2015-03-21 Univers ity of current (pack per 00:00:00 00:00:00 ) - Reported Branch Cigarette 2015-03-21 2015-03-21 University of pack-years 00:00:00 00:00:00 [facility] Tobacco use and 2015-03-21 2015-03-21 Never used Universit y of exposure 00:00:00 00:00:00 [facility] Sex [birth year] At [birth year] Universit y of 00:00:00 00:00:00 [facility] Smoking Status Start Date Stop Date Source Former smoker 2015-03-21 00:00:00 2015-03-21 00:00:00 Universi ty of [facility] Medications Ordered Filled Start Stop Current Ordering Indication Dosage Frequency Signature Comments Components Source Medication Medication Date Date Medication? Clinician (SIG) Name Name lisinopriL Yes 20mg Take 1 Unive rs (PRINIVIL) 1-18 tablet by ity of 20 mg 00:00: mouth [place] tablet 00 daily. Medical Please Branch note tablet dose change. spironolact Yes [id number] 12.5mg Take 0.5 Univers one 25 mg 1-04 tablets by ity of tablet 00:00: mouth [place] 00 daily. Medical Branch gabapentin 2020-04 Yes 300mg Take 300 Un adia 300 mg 1-08 mg by ity of capsule 13:35: mouth. [place] [id number] Medical Branch rivaroxaban 2020-04 Yes 1 (one) Uni vers 20 mg 1-01 time each ity of tablet 00:00: day at the [place] 00 same time. Medical Branch clopidogrel Yes [...] the tablet 23 same time. Insulin Yes [id number] Use as Univ ers Holly, 7- directed ity of Disposable, 00:00: BId E11.65 [place] (PEN 00 Medical NEEDLE) 32 Branch gauge x 5/32" Ndle blood sugar Yes [id number] Use to Univers diagnostic 7- check ity of (ACCU-CHEK 00:00: blood [place] ELMER PLUS 00 sugar 3X Medic al TEST STRP) daily. Branch strip DX:E11.42 lancets 33 Yes [id number] Use to U nivers gauge Misc 7-19 check ity of 00:00: blood [place] 00 sugar 3X Medical daily. Branch DX:E11.42 metoprolol Yes [id number] 50mg Take 1 Univers succinate 7-06 100 tablet by ity o f XL 50 mg 24 00:00: mouth 2 Dimitri as hr tablet 00 (two) Medical times Branch daily. aspirin 81 Yes 81mg Take 1 Unive rs mg chewable 6-23 tablet by ity of tablet 00:00: mouth [place] 00 daily. Medical Branch aspirin Yes 1 (one) [place] (ASPIRIN) 6-23 time each Healt h 81 MG 00:00: day at the chewable 00 same time. tablet aspirin Yes 1 (one) [place] (ASPIRIN) 6-23 time each Healt h 81 MG 00:00: day at the chewable 00 same time. tablet aspirin Yes 1 (one) [place] (ASPIRIN) 6-23 [...] 4-6). Indication s: acute pain Insulin Yes [id number] INJECT 30 Univers Detemir 5-05 UNITS ity [...] with weekly. Medical peripheral Branch neuropathy metformin Yes Type 2 1000mg Take 2 Un adia ER 500 mg 3-31 diabetes tablets by ity of 24 hr 00:00: mellitus mouth 2 [place] tablet 00 with (two) Medical peripheral times Branch neuropathy daily. dulaglutide Yes [id number] 1.5mg inject 1.5 Univers (TRULICITY) 3-31 mg under ity of 1.5 mg/0.5 00:00: the skin Dimitri as mL PnIj 00 weekly. Medical Branch metformin Yes [id number] 1000mg Take 2 Univers ER 500 mg [...] tablet by mouth in the evening. rivaroxaban No atrial 20mg Take 1 U nivers [...] 00 bedtime. Medical Branch atorvastati 2019-04 Yes [id number] 80mg Take 1 Univers n 80 mg [...] Status post 50mg Take 1 Univers succinate 05-16 left heart tablet by ity of XL 50 mg 24 00:00: catheteriza mouth 2 [place] hr tablet 00 tion (LHC) (two) Med ical by times Branch percutaneou daily. s approach SPIRONOLACT 2020-1 Yes Essential TAKE 1/2 Univers ONE 25 mg 1-06 hypertensio TABLET BY ity of tablet 00:00: n MOUTH [place] 00 EVERY DAY Medical Branch Insulin 2019-0 Yes Type 2 Use as Univer s Holly, 7- diabetes directed ity of Disposable, 00:00: mellitus BId E11.65 [place] (PEN 00 with Medical NEEDLE) 32 peripheral Bra nch gauge x neuropathy 5/32" Ndle ferrous 2019-0 Yes Anemia, 325mg Take 1 Univ ers sulfate 325 3-13 unspecified tablet by ity of mg (65 mg 00:00: type mouth 2 [place] iron) 00 (two) Medical tablet times Branch daily with meals. ferrous 2019-0 Yes [id number] 325mg Take 1 Un adia sulfate 325 [...] Immunizations Ordered Filled Immunization Date Status Comments [facility] e Immunization Name Name SARS-COV-2 COVID-19 2020-12-11 Completed Unive rsity of PFIZER VACCINE 00:00:[address] [facility] SARS-COV-2 COVID-19 2020-06-05 Completed Unive rsity of PFIZER VACCINE 00:00:[address] [facility] SARS-COV-2 COVID-19 2020-06-05 Completed Unive rsity of PFIZER VACCINE 00:00:[address] [facility] SARS-COV-2 COVID-19 2020-05-09 Completed Unive rsity of PFIZER VACCINE 00:00:[address] [facility] SARS-COV-2 COVID-19 2020-05-09 Completed Unive rsity of PFIZER VACCINE 00:00:[address] [facility] SARS-COV-2 COVID-19 2020-05-08 Completed Unive rsity of PFIZER VACCINE 00:00:[address] [facility] SARS-COV-2 COVID-19 2020-05-08 Completed Unive rsity of PFIZER VACCINE 00:00:[address] [facility] TDAP 2019-11-22 Completed University of 00:00:00 [facility] Pneumococcal 2019-11-22 Completed University o f Polysaccharide, 00:00:00 [facility] ical PPSV23 (PNEUMOVAX) Branch TDAP 2019-11-22 Completed University of 00:00:00 [facility] Pneumococcal 2019-11-22 Completed University o f Polysaccharide, 00:00:00 [facility] ical PPSV23 (PNEUMOVAX) Branch Influenza Virus 2019-02-04 Completed Universit y of Vaccine Quad .5 mL 00:00:00 [facility] IM 6+ MO Branch Influenza Virus 2019-02-04 Completed Universit y of Vaccine Quad .5 mL 00:00:00 [facility] IM 6+ MO [place] Influenza Virus 2018-02-24 Completed Universit y of Vaccine Quad IM 3+ 00:00:00 [facility] Influenza Virus 2018-02-24 Completed Universit y of Vaccine Quad IM 3+ 00:00:00 [facility] TDAP 2017-02-27 Completed University of 00:00:00 [facility] TDAP 2017-02-27 Completed University of 00:00:00 [facility] Influenza Virus 2016-01-09 Completed Universit y of Vaccine 00:00:00 [facility] Influenza Virus 2016-01-09 Completed Universit y of Vaccine (3+ yrs) 00:00:00 [facility] Influenza Virus 2016-01-09 Completed Universit y of Vaccine 00:00:00 [facility] Influenza Virus 2016-01-09 Completed Universit y of Vaccine (3+ yrs) 00:00:00 [facility] Tetanus/Diptheria 2013-02-11 Completed Univers ity of 00:00:00 [facility] Tetanus/Diptheria 2013-02-11 Completed Univers ity of 00:00:00 [facility] Zoster(Zostavax)( 2012-10-01 Completed Unive rsity of ingles) 00:00:00 [facility] Pneumococcal 13 2012-10-01 Completed Universit y of Conjugate, PCV13 00:00:00 [facility] (Prevnar 13) [place] Zoster(Zostavax)( 2012-10-01 Completed Unive rsity of ingles) 00:00:00 [facility] Pneumococcal 13 2012-10-01 Completed Universit y of Conjugate, PCV13 00:00:00 [facility] dical (Prevnar 13) Branch Vital Signs Vital Name Observation Time Observation Value Comments Source Systolic blood 2021-08-20 16:40:00 144 mm[Hg] Univer sity of pressure [facility] Diastolic blood 2021-08-20 16:40:00 80 mm[Hg] [facility] Heart rate 2021-08-20 16:33:00 65 /min [facility] Body temperature 2021-08-20 16:33:00 36.72 Silvia [facility] height 2021-08-20 16:33:00 170.2 cm [facility] Body weight 2021-08-20 16:33:00 94.031 kg [facility] BMI 2021-08-20 16:33:00 32.47 kg/m2 [facility] Oxygen saturation in 2021-08-20 16:33:00 100 /min [facility] Arterial blood by [facility] Pulse oximetry Branch Procedures Procedure Date / Time Performing Clinician Source Performed PHYSICIAN CORRESPONDENCE 2020-08-03 05:01:00 Doctor Unassigned, [facility] [place] Medical [facility] Plan of Care Planned Activity Planned Date Details Comments Source Future Scheduled 2029-11-21 DTaP,Tdap,and Td [facility] Test 00:00:00 Vaccines (3 - Td) Medical Br anch [code = DTaP,Tdap,and Td Vaccines (3 - Td)] Future Scheduled 2024-11-21 PNEUMOCOCCAL 0-64 [facility] Test 00:00:00 YEARS COMBINED SERIES Medica l Branch (3 of 3 - PPSV23) [code = PNEUMOCOCCAL 0-64 YEARS COMBINED SERIES (3 of 3 - PPSV23)] Future Scheduled 2021-05-21 [facility]inine [facility] (procedure) [code = Medical Branch 00166151] Future Scheduled 2021-05-19 Diabetic foot [facility] Test 00:00:00 examination Medical Branch (regime/therapy) [code = 476601563] Future Scheduled 2021-03-31 Depression screening Uni [facility] Test 00:00:00 (procedure) [code = Medical Branch 188152383] Future Scheduled 2020-12-13 [facility] Test 00:00:00 (Season Ended) [code = Medic al Branch INFLUENZA VACCINE (Season Ended)] Future Scheduled 2020-11-12 Hemoglobin A1c [facility] Test 00:00:00 measurement Medical Branch (procedure) [code = 39533801] Future Scheduled 2020-11-04 Screening for [facility] Test 00:00:00 malignant neoplasm of Medica l Branch colon (procedure) [code = 566003093] Future Scheduled 2020-11-04 Screening for [facility] Test 00:00:00 malignant neoplasm of Medica l Branch colon (procedure) [code = 786868217] Future Scheduled 2020-11-01 Calculated low density U [facility] Test 00:00:00 lipoprotein Medical Branch cholesterol level (procedure) [code = 777265903] Future Scheduled 2020-11-01 Microalbumin [facility] Test 00:00:00 measurement, urine, Medical Branch quantitative (procedure) [code = 416762707] Future Scheduled 2020-08-31 Examination of retina Un [facility] Test 00:00:00 (procedure) [code = Medical Branch 702559521] Future Scheduled 2012-11-26 [facility] Test 00:00:00 Vaccine (SHINGRIX) (2 Medica l Branch of 3) [code = Zoster Recombinant Vaccine (SHINGRIX) (2 of 3)] Future Scheduled 2007 Screening for occult Uni [facility] Test 00:00:00 blood in feces [facility] Branc h (procedure) [code = 630234511] Future Scheduled 2007 Stool DNA-based [facility] Test 00:00:00 colorectal cancer Medical Br anch screening (procedure) [code = 399092946389559] Future Scheduled 2007 Flexible fiberoptic [facility] Test 00:00:00 sigmoidoscopy Medical Branch (procedure) [code = 02881310] Encounters Start End Encounter Admission Attending Care Care Encounter Source Date/Time Date/Time Type Type Clinicians Facility Department ID 2021-05-10 Outpatient 3 Alo, [facility] AML [id number] [facility] 12:22:33 Neela 0622 2021-05-10 Outpatient 3 [id number] [facility] REF [id number] [facility] 12:22:03 0621 2020-12-20 Outpatient VAUGHN, [facility] [id number] [place] 02:58:24 [facility] 2021-11-02 2021-11-02 Outpatient ZECHARIAH, [facility] [id number] [place] 00:00:00 00:00:00 STEPHY 662 Method i 2021-09-03 2021-09-03 Outpatient Moris CADET, [facility] [id number] [facility] 11:30:00 11:30:[address] [facility] 2021-08-28 2021-08-28 Outpatient ZECHARIAH, [facility] [id number] [place] 00:00:00 00:00:00 STEPHY 719 Method i 2021-08-20 2021-08-20 Office Marina [facility] [id number] [facility] 11:30:00 12:25:13 Visit [facility] [id number] ity of [facility] [id number] [facility] [id number] [address] 2021-07-12 2021-07-13 Outpatient ZECHARIAH, [facility] [id number] [place] 00:00:00 00:00:00 STEPHY 330 Method i 2021-07-10 2021-07-10 Outpatient ZECHARIAH, [facility] [id number] [address] [place] 00:00:00 00:00:00 STEPHY 207 Method i 2021-07-10 2021-07-10 Outpatient ZECHARIAH, [facility] [id number] [place] 00:00:00 00:00:00 STEPHY 384 Method i 2021-02-09 2021-02-09 Outpatient ZECHARIAH, [facility] [id number] [place] 00:00:00 00:00:00 STEPHY 982 Method i 2021-02-05 2021-02-05 Outpatient ZECHARIAH, [facility] [id number] [place] 00:00:00 00:00:00 STEPHY 968 Method i 2021-02-05 2021-02-05 Outpatient ZECHARIAH, [facility] [id number] [place] 00:00:00 00:00:[address] STEPHY [address] 2021-01-30 2021-01-30 Outpatient ZECHARIAH, [facility] [id number] [place] 00:00:00 00:00:00 STEPHY 417 Method i 2021-01-30 2021-01-30 Outpatient ZECHARIAH, [facility] [id number] [place] 00:00:00 00:00:00 STEPHY 752 Method i 2021-01-30 2021-01-30 Outpatient ZECHARIAH, [facility] [id number] [place] 00:00:00 00:00:00 STEPHY 015 Method i 2021-01-15 2021-01-15 Outpatient ZECHARIAH, [facility] [id number] [place] 00:00:00 00:00:00 STEPHY 142 Method i 2021-01-09 2021-01-09 Outpatient ZECHARIAH, [facility] [id number] [place] 00:00:00 00:00:00 STEPHY 689 Method i 2020-12-19 2020-12-19 Office Vaughn [facility] [id number] [place] 09:57:11 10:13:20 Visit Drake HEIDY [id number] He abbie [address] 1 [id number] Results Test Description Test Time Test Comments Results Result Comments Source SARS-CoV-2 (COVID-19) RNA [Presence] in Respiratory sp ecimen by 2021-02-06 02:02:12 [facility] with probe detection Test Item Value Reference Range Interpretation Comme nts SARS-CoV-2 (COVID-19) RNA [Presence] in Respiratory Not detected No t-Detected specimen by PER[facility] with probe detection (test code = 79143-1) Whether patient is employed in a healthcare setting (test code = 64728-3) Whether the patient has symptoms related to condition of interest (test code = 66992-7) Patient was hospitalized because of this condition (test code = 69123-5) Whether the patient was admitted to intensive care unit (ICU) for condition of interest (test code = 03901-4) Whether patient resides in a congregate care setting (test code = 11783-2)
--- NOTE | 2021-11-19 15:01 | RAD REPORT ---
EXAM DESCRIPTION: RAD - Chest Single View - 11/19/2021 2:50 pm CLINICAL HISTORY: SOB COMPARISON: Chest Single View dated 09/09/2021; Chest Single View dated 01/03/2017; CHEST PA AND LAT 2 VIEW dated 06/15/2014 FINDINGS: Lines: None. Lungs: Increased prominence of the pulmonary vasculature. Pleural: No significant pleural effusions or pneumothorax. Cardiac: Cardiomegaly. Bones: No acute fractures. Other: IMPRESSION: Pulmonary vascular congestion. No alveolar edema or consolidative airspace disease.
[2021-11-19 15:15] LABS: Absolute Lymphocytes (CBC) 0.6 K/uL (0.7-4.9); Hematocrit 29.1 % (39.6-49.0); MCV 94.4 fL (80-100); MPV 8.9 fL (7.6-11.3); RBC Red Blood Cell Count 3.08 M/uL (4.33-5.43)
[2021-11-19 15:16] LABS: Protime INR 1.32
[2021-11-19 15:28] LABS: Albumin 3.7 g/dL (3.4-5.0); Bilirubin Direct 0.3 mg/dL (0-0.2); Bilirubin Total 0.9 mg/dL (0.2-1.0); Magnesium 1.8 mg/dL (1.8-2.4); Protein, Total 7.5 g/dL (6.4-8.2)
--- NOTE | 2021-11-19 16:01 | RAD REPORT ---
EXAM DESCRIPTION: CT - Head Brain Wo Cont - 11/19/2021 3:52 pm CLINICAL HISTORY: general weakness COMPARISON: No comparisons TECHNIQUE: All CT scans are performed using dose optimization technique as appropriate and may inclu de automated exposure control or mA/KV adjustment according to patient size. FINDINGS: No intracranial hemorrhage, hydrocephalus or extra-axial fluid collection.No areas of brai n edema or evidence of midline shift. The paranasal sinuses and mastoids are clear. The calvarium is intact. IMPRESSION: No acute intracranial abnormality.
[2021-11-19] MEDS ORDERED: FUROSEMIDE 20 MG/ 2ML VIAL ONE ×2 (16:09→19:05)
--- NOTE | 2021-11-19 16:46 | RAD REPORT ---
EXAM DESCRIPTION: CTAbdomen Pelvis Wo Contrast - 11/19/2021 4:30 pm CLINICAL HISTORY: abdominal pain COMPARISON: CT-STONE PROTOCOL dated 05/06/2011 TECHNIQUE: CT of the abdomen and pelvis was performed. All CT scans are performed using dose optimization technique as appropriate and may include automated exposure control or mA/KV adjustment according to patient size. FINDINGS: Lower chest: Small bilateral effusions coronary artery calcifications. Mild cardiomegaly. Mild nonspecific circumferential thickened distal esophagus. This could reflect esophagitis. Liver: No acute abnormality or suspicious lesions. Biliary: No biliary ductal dilatation. Stomach: No significant focal abnormality. Duodenum: No significant focal abnormality. Pancreas: No significant abnormality. Spleen: No significant abnormality. Adrenal: No suspicious lesions. Kidney/ureter: No hydronephrosis. No renal calculi. Retroperitoneum: No retroperitoneal adenopathy. Vascular: No aneurysm. Atherosclerosis. Bowel: Diverticulosis. No evidence of acute diverticulitis. Normal appendix.. Peritoneum: No ascites or free air. Bladder: Grossly unremarkable. Reproductive: No adnexal masses. Bones: No acute fracture. Other: Diffuse skin thickening at the patient's pannus. Mild body wall edema. IMPRESSION: No acute intra-abdominal or pelvic finding. Small pleural effusions and mild body wall edema may reflect anasarca.
--- NOTE | 2021-11-19 18:49 | EDPHYS ---
Physician Documentation [facility] Name: Sathya Douglass Age: 66 yrs Sex: Male : 1955 Arrival Date: 11/19/2021 Time: 14:02 Bed Treatment Private MD: Gomez Lou C ED Physician Ta Sidhu HPI: 11/19 14:40 This 66 yrs old Male presents to ER via Ambulatory with complaints of Weakness.cp 14:40 The patient presents to the emergency department with weakness of the entire body, cp generalized weakness. Onset: The symptoms/episode began/occurred gradually. Historical: - Allergies: 14:08 PENICILLINS; kr3 - PMHx: 14:08 Diabetes - NIDDM; High Cholesterol; Hypertension; kr3 - PSHx: 14:08 Coronary artery bypass graft; kr3 - Immunization history:: Client reports receiving the 2nd dose of the Covid vaccine. - Social history:: Smoking status: Patient/guardian denies using tobacco, the patient reports quitting approximately 35 years ago. ROS: 14:45 Constitutional: Positive for fatigue, Negative for body aches, chills, fever, poor PO cp intake. 14:45 Eyes: Negative for injury, pain, redness, and discharge. cp 14:45 ENT: Negative for drainage from ear(s), ear pain, sore throat, difficulty swallowing, difficulty handling secretions. 14:45 Cardiovascular: Positive for edema, Negative for chest pain, palpitations. 14:45 Respiratory: Negative for cough, shortness of breath, wheezing. 14:45 Abdomen/GI: Negative for abdominal pain, nausea, vomiting, and diarrhea. 14:45 : Negative for urinary symptoms. 14:45 Neuro: Positive for weakness, Negative for altered mental status, dizziness, headache, loss of consciousness, syncope. 14:45 All other systems are negative. Exam: 17:13 ECG was reviewed by the Attending Physician. cp Vital Signs: 14:04 BP 134 / 64; Pulse 77; Resp 20; Temp 97.6; Pulse Ox 96% on R/A; Weight 90.72 kg; Height kr3 5 ft. 7 in. (170.18 cm); Pain 0/10; 14:38 BP 137 / 62; Pulse 90; Resp 16; Pulse Ox 100% ; Pain 0/10; kb3 16:58 BP 128 / 50; Pulse 58; Resp 21; Pulse Ox 97% ; Pain 0/10; kb3 17:32 Pulse 77; Pulse Ox 98% on R/A; dh3 18:32 BP 126 / 74; Pulse 51; Resp 16; Pulse Ox 94% ; Pain 0/10; kb3 14:04 Body Mass Index 31.32 (90.72 kg, 170.18 cm) kr3 17:32 while ambulating dh3 NIH Stroke Scale Scores: 14:38 NIHSS Score: 0 kb3 [place] Coma Score: 14:39 Eye Response: spontaneous(4). Verbal Response: oriented(5). Motor Response: obeys kb3 commands(6). Total: 15. MDM: 14:25 Patient medically screened. cp 18:46 Physician consultation: A Carmine SHEA was contacted at 18:40, regarding consult, patient's cp condition, will have patient double oral dose of Lasix for next 3 days and f/u in clinic with DR Lou this week. 11/19 14:36 Order name: Basic Metabolic Panel; Complete Time: 15:38 cp 11/19 15:38 Interpretation: Normal except: CL 108; GLUC 160; BUN 23; CRE 1.56; GFR 49. cp 11/19 14:36 Order name: CBC with Diff; Complete Time: 15:38 cp 08 15:39 Interpretation: Normal except: RBC 3.08; HGB 9.6; HCT 29.1; MCV 94.4; PLT 133; RDW cp 16.8; MARIAN% 75.8; LYMA 0.6; LYM% 14.0. 11/19 14:36 Order name: LFT's; Complete Time: 15:38 cp 11/19 16:24 Interpretation: Normal except: AST 14; BILID 0.3; GLOB 3.8; A/G 1.0. cp 11/19 14:36 Order name: Magnesium; Complete Time: 15:38 cp 11/19 14:36 Order name: NT PRO-BNP; Complete Time: 15:38 cp 11/19 16:54 Interpretation: Abnormal: NT PRO-BNP 3994. cp 11/19 14:36 Order name: PT-INR; Complete Time: 15:38 cp 11/19 14:36 Order name: Troponin HS; Complete Time: 15:38 cp 11/19 14:36 Order name: XRAY Chest (1 view); Complete Time: 15:38 11/19 14:37 Order name: CT Head Brain wo Cont; Complete Time: 16:24 11/19 16:25 Interpretation: Report reviewed. 11/19 15:46 Order name: CT Abd/Pelvis - Without Contrast; Complete Time: 16:54 11/19 15:47 Order name: Urine Microscopic Only 11/19 18:56 Order name: Urine Dipstick-Ancillary EDMS 11/19 14:36 Order name: EKG; Complete Time: 14:37 11/19 14:36 Order name: Cardiac monitoring; Complete Time: 15:20 11/19 14:36 Order name: EKG - Nurse/Tech; Complete Time: 15:21 11/19 14:36 Order name: IV Saline Lock; Complete Time: 15:00 11/19 14:36 Order name: Labs collected and sent; Complete Time: 15:00 11/19 14:36 Order name: O2 Per Protocol; Complete Time: 15:00 11/19 14:36 Order name: O2 Sat Monitoring; Complete Time: 15:00 11/19 17:13 Order name: Misc. Order: ambulate with pulse oximeter; Complete Time: 18:19 cp EC:13 Rate is 53 beats/min. Rhythm is irregular. QRS interval is normal. QT interval is cp prolonged at 508 msec. Interpreted by me. Reviewed by me. Administered Medications: 15:42 CANCELLED (Physician Discretion): Lasix (furosemide) 40 mg IVP once; give over 2 minutescp 16:11 Drug: Lasix (furosemide) 20 mg Route: IVP; Site: left wrist; hb Disposition Summary: 11/19/21 18:48 Discharge Ordered Location: Home cp Problem: new cp Symptoms: have improved cp Condition: Stable cp Diagnosis - Weakness - general cp - Anemia in other chronic diseases classified elsewhere cp Followup: cp - With: Gomez Lou MD - When: 2 - 3 days - Reason: Recheck today's complaints Discharge Instructions: - Discharge Summary Sheet cp - Anemia cp - Weakness cp Forms: - Medication Reconciliation Form cp - Thank You Letter cp - Antibiotic Education cp - Prescription Opioid Use cp NIH Stroke Scale - NIH Stroke Score Date: 11/19/2021 Time: 14:38 Total Score = 0 1a. Level of Consciousness (LOC) - 0(Alert) 1b. Level of Consciousness (LOC) (Month \T\ Age) - 0(Both) 1c. LOC Commands (Open \T\ Closes Eyes/Loss Control Representative) - 0(Both) 2. Best Gaze (Lateral Gaze Paresis) - 0(Normal) 3. Visual Field Loss - 0(No visual loss) 4. Facial Palsy - 0(Normal) 5a. Left Arm: Motor (10-second hold) - 0(No drift) 5b. Right Arm: Motor (10-second hold) - 0(No drift) 6a. Left Leg: Motor (5-second hold - always test supine) - 0(No drift) 6b. Right Leg: Motor (5-second hold - always test supine) - 0(No drift) 7. Limb Ataxia (finger/nose \T\ heel/feldman - test with eyes open) - 0(Absent) 8. Sensory Loss (pinprick arms/legs/face) - 0(Normal) 9. Best Language: Aphasia (description/naming/reading) - 0(No aphasia) 10. Dysarthria (speech clarity - read or repeat words) - 0(Normal) 11. Extinction and Inattention (visual/tactile/auditory/spatial/personal) - 0(No abnormality) Initials: kb3 Addendum: 11/20/2021 21:45 Co-signature as Attending Physician, Ta Sidhu MD. rn Signatures: Dispatcher [employer] EDTa Biggs MD MD rn Page, Corey, PA PA cp Kortney Colbert RN RN hb Reid, Kelley, RN RN kr3 Corrections: (The following items were deleted from the chart) 11/19 14:11 14:08 PMHx: Prostate; kr3 kr3 15:42 15:41 Lasix (furosemide) 40 mg IVP once; give over 2 minutes ordered. cp cp
--- NOTE | 2021-11-19 18:49 | ER ---
Nurse's Notes [facility] Name: Sathya Douglass Age: 66 yrs Sex: Male : 1955 Arrival Date: 11/19/2021 Time: 14:02 Bed Treatment Private MD: Gomez Lou C Diagnosis: Weakness-general;Anemia in other chronic diseases classified elsewhere Presentation: 11/19 14:04 Chief complaint: Patient states: generalized weakness and shortness of breath x 3 kr3 weeks. Coronavirus screen: Vaccine status: Patient reports receiving the 2nd dose of the covid vaccine. Client denies travel out of the [place] in the last 14 days. Ebola Screen: Patient denies travel to an Ebola-affected area in the 21 days before illness onset. No acute neurological deficit is noted. Pre-hospital glucose is not applicable to this patient. Initial Sepsis Screen: Does the patient meet any 2 criteria? No. Patient's initial sepsis screen is negative. Does the patient have a suspected source of infection? No. Patient's initial sepsis screen is negative. Risk Assessment: Do you want to hurt yourself or someone else? Patient reports no desire to harm self or others. Onset of symptoms was October 26, 2021. 14:04 Method Of Arrival: Ambulatory kr3 14:04 Acuity: FRANCIS 3 kr3 Triage Assessment: 14:10 The onset of the patients symptoms was more than six hours ago. General: Appears in no kr3 apparent distress. uncomfortable, Behavior is calm, cooperative, appropriate for age. Pain: Denies pain. Neuro:. Respiratory: Reports shortness of breath at rest. Stroke Activation: Symptom onset > 6 hours Physician: Stroke Attending; Name: ; Notified At: ; Arrived At: Physician: Chief Stroke Resident; Name: ; Notified At: ; Arrived At: Physician: Stroke Resident; Name: ; Notified At: ; Arrived At: Physician: ED Attending; Name: ; Notified At: ; Arrived At: Physician: ED Resident; Name: ; Notified At: ; Arrived At: Historical: - Allergies: 14:08 PENICILLINS; kr3 - PMHx: 14:08 Diabetes - NIDDM; High Cholesterol; Hypertension; kr3 - PSHx: 14:08 Coronary artery bypass graft; kr3 - Immunization history:: Client reports receiving the 2nd dose of the Covid vaccine. - Social history:: Smoking status: Patient/guardian denies using tobacco, the patient reports quitting approximately 35 years ago. Screenin:39 Abuse screen: Denies threats or abuse. Nutritional screening: No deficits noted. kb3 Tuberculosis screening: No symptoms or risk factors identified. Fall Risk No fall in past 12 months (0 pts). Secondary diagnosis (15 points) impaired mobility, IV access (20 points). Ambulatory Aid- None/Bed Rest/Nurse Assist (0 pts). Gait- Weak (10 pts.). Mental Status- Oriented to own ability (0 pts). Total Amaral Fall Scale indicates High Risk Score (45 or more points). Fall prevention measures have been instituted. Frequent Obs/Assessments Occuring Family Present and informed to notify staff if the need to leave the bedside As available patient and family educated on Fall Prevention Program and Strategies. Assessment: 14:38 VAN Scoring: Arm Drift: Patients demonstrates NO arm weakness. Patient is VAN Negative. kb3 Visual Disturbance: No visual disturbance noted. Aphasia: No aphasia noted. Neglect: No neglect noted. The patient has not been NPO before screening. The patient is alert, and able to follow commands. The patient does not exhibit slurred or garbled speech. The patient is not exhibiting difficulty speaking. The patient is exhibiting difficulty understanding words. The patient is able to swallow own secretions with no drooling or need for suction. Patient tolerated one teaspoon of water. No drooling, immediate coughing, gurgling, or clearing of the throat was noted. The patient tolerated 90mL of water. No drooling, immediate coughing, gurgling, or clearing of the throat was noted. The patient passed the bedside swallow screening. Oral medications may be given as ordered. Contact Physician for further diet orders. 14:41 General: Appears in no apparent distress. comfortable, Behavior is calm, cooperative, kb3 Smells of Reports fatigue for Denies. Pain: Denies pain. Neuro: No deficits noted. Level of Consciousness is awake, alert, obeys commands, Oriented to person, place, time, situation, Cylinder Tester are equal bilaterally Moves all extremities. Weakness Gait is shuffling, Speech is normal, Facial symmetry appears normal, Pupils are PERRLA, Intact. Cardiovascular: No deficits noted. Respiratory: Reports shortness of breath on exertion Breath sounds are clear bilaterally. Onset: The symptoms/episode began/occurred gradually. GI: Abdomen is round Last BM was November 19, 2021. Bowel sounds present X 4 quads. Abd is soft and non tender X 4 quads. Reports bloating. : No deficits noted. Musculoskeletal: Reports Generalized weakness x3 weeks. 14:45 TNKase (Tenecteplase) Screening: Indications: Contraindications: Patient reports onset kb3 of signs and symptoms of stroke greater than 6 hours ago:. 15:18 General:. kb3 16:08 Reassessment: Patient appears in no apparent distress at this time. Patient and/or hb family updated on plan of care and expected duration. Pain level reassessed. Patient is alert, oriented x 3, equal unlabored respirations, skin warm/dry/pink. 17:15 Reassessment: SPO2 98% while ambulating in hallway on RA. PA Page notified. Patient hb denies pain at this time. 19:10 Reassessment: Patient appears in no apparent distress at this time. Patient and/or hb family updated on plan of care and expected duration. Pain level reassessed. Patient is alert, oriented x 3, equal unlabored respirations, skin warm/dry/pink. Vital Signs: 14:04 BP 134 / 64; Pulse 77; Resp 20; Temp 97.6; Pulse Ox 96% on R/A; Weight 90.72 kg; Height kr3 5 ft. 7 in. (170.18 cm); Pain 0/10; 14:38 BP 137 / 62; Pulse 90; Resp 16; Pulse Ox 100% ; Pain 0/10; kb3 16:58 BP 128 / 50; Pulse 58; Resp 21; Pulse Ox 97% ; Pain 0/10; kb3 17:32 Pulse 77; Pulse Ox 98% on R/A; dh3 18:32 BP 126 / 74; Pulse 51; Resp 16; Pulse Ox 94% ; Pain 0/10; kb3 14:04 Body Mass Index 31.32 (90.72 kg, 170.18 cm) kr3 17:32 while ambulating dh3 [place] Coma Score: 14:39 Eye Response: spontaneous(4). Verbal Response: oriented(5). Motor Response: obeys kb3 commands(6). Total: 15. NIH Stroke Scale Scores: 14:38 NIHSS Score: 0 kb3 ED Course: 14:02 Patient arrived in ED. mr 14:02 Gomez Lou MD is Private Physician. mr 14:08 Triage completed. kr3 14:12 Arm band placed on. kr3 14:23 Zuhair Snyder PA is PHCP. cp 14:23 Ta Sidhu MD is Attending Physician. cp 14:29 Kortney Colbert, TERRIE is Primary Nurse. hb 14:39 Patient has correct armband on for positive identification. Bed in low position. Call kb3 light in reach. Side rails up X 1. Adult w/ patient. 14:39 No provider procedures requiring assistance completed. kb3 14:51 XRAY Chest (1 view) In Process Unspecified. EDMS 15:00 Basic Metabolic Panel Sent. kb3 15:00 CBC with Diff Sent. kb3 15:00 LFT's Sent. kb3 15:00 Magnesium Sent. kb3 15:00 NT PRO-BNP Sent. kb3 15:00 PT-INR Sent. kb3 15:00 Troponin HS Sent. kb3 15:01 Inserted saline lock: 20 gauge in left forearm, using aseptic technique. Blood kb3 collected. 15:53 CT Head Brain wo Cont In Process Unspecified. EDMS 16:32 CT Abd/Pelvis - Without Contrast In Process Unspecified. EDMS 17:31 Pulse ox on. while ambulating 98% RA. dh3 18:47 Gomez Lou MD is Referral Physician. cp 19:10 IV discontinued, intact, bleeding controlled, No redness/swelling at site. hb Administered Medications: 15:42 CANCELLED (Physician Discretion): Lasix (furosemide) 40 mg IVP once; give over 2 minutescp 16:11 Drug: Lasix (furosemide) 20 mg Route: IVP; Site: left wrist; hb Medication: 14:39 VIS not applicable for this client. kb3 Outcome: 18:48 Discharge ordered by MD. cp 19:10 Discharged to home via wheelchair, with family. hb 19:10 Condition: stable 19:10 Discharge instructions given to patient, family, Instructed on discharge instructions, follow up and referral plans. medication usage, Demonstrated understanding of instructions, follow-up care, medications. 19:11 Patient left the ED. hb NIH Stroke Scale - NIH Stroke Score Date: 11/19/2021 Time: 14:38 Total Score = 0 1a. Level of Consciousness (LOC) - 0(Alert) 1b. Level of Consciousness (LOC) (Month \T\ Age) - 0(Both) 1c. LOC Commands (Open \T\ Closes Eyes/Nail Galvanizer) - 0(Both) 2. Best Gaze (Lateral Gaze Paresis) - 0(Normal) 3. Visual Field Loss - 0(No visual loss) 4. Facial Palsy - 0(Normal) 5a. Left Arm: Motor (10-second hold) - 0(No drift) 5b. Right Arm: Motor (10-second hold) - 0(No drift) 6a. Left Leg: Motor (5-second hold - always test supine) - 0(No drift) 6b. Right Leg: Motor (5-second hold - always test supine) - 0(No drift) 7. Limb Ataxia (finger/nose \T\ heel/feldman - test with eyes open) - 0(Absent) 8. Sensory Loss (pinprick arms/legs/face) - 0(Normal) 9. Best Language: Aphasia (description/naming/reading) - 0(No aphasia) 10. Dysarthria (speech clarity - read or repeat words) - 0(Normal) 11. Extinction and Inattention (visual/tactile/auditory/spatial/personal) - 0(No abnormality) Initials: kb3 Signatures: Dispatcher [employer] YOANAWA Toni Maylin mr Zuhair Snyder PA PA cp Baxter, Heather, RN TERRIE Heide Brady 3 Myranda Saucedo RN RN kr3 Dai Maier RN RN kb3 Corrections: (The following items were deleted from the chart) 14:11 14:08 PMHx: Prostate; kr3 kr3
[2021-11-19 18:56] LABS: Urine Blood Trace-intact (Negative); Urine Glucose Negative (Negative); Urine Protein 1+ (Negative); Urine Specific Gravity 1.025 (1.005-1.030); Urine pH 5.5 (5.0-7.0)
[2021-11-19 19:11] LABS: Urine Bacteria <20 /HPF (<20); Urine RBC <5 /HPF (None Seen)
[2021-11-19 21:29] VITALS: TEMP 97.6
[2021-11-19 21:58] VITALS: BP 126/74; O2SAT 94
--- NOTE | 2021-11-20 10:39 | EKG ---
Test Date: 2021-11-19 Test Time: 17:08:04 [employer]: HB MEASUREMENT RESULTS: Intervals: Rate: 53 SC: QRSD: 80 QT: 508 QTc: 476 Tangent: P: SC: QRS: 37 T: -53 INTERPRETIVE STATEMENTS: Atrial fibrillation with slow ventricular response Possible Anterior infarct, age undetermined Abnormal ECG Compared to ECG 09/09/2021 17:02:21 Myocardial infarct finding now present Atrial flutter no longer present ST (T wave) deviation no longer present Possible ischemia no longer present Electronically Signed On 11-20-21 10:36:11 CDT by Abdon Arciniega
== END 2021-11-19 19:11 | disposition home or self-care (01) ==
LOC: ER 14:00
DX: R53.1 Weakness (principal); D64.9 Anemia, unspecified; E11.9 Type 2 diabetes mellitus without complications; I10 Essential (primary) hypertension; Z95.1 Presence of aortocoronary bypass graft; Z88.0 Allergy status to penicillin
CPT/HCPCS: 93005; 85025; 80048; 36415; 83735; 85610; 80076; 84484; 83880; 70450; 74176; 71045; J1940 ×2; 81003; 81015; 96374; 99284